=== PATIENT | male | born 1945 | race Caucasian/White ===

== ENCOUNTER 2020-11-22 08:47 | Outpatient (CLI) | payer MEDICARE, SELFPAY ==
--- NOTE | ~2020-11-22 | XR_ITS ---
EXAMINATION: XR hip BI wo pelvis INDICATION: Chronic bilateral hip pain TECHNIQUE: Two views of each hip are obtained. COMPARISON: None available FINDINGS: There is mild osteoarthritis of the hips. Bone alignment is normal. There is no fracture. T he soft tissues are unremarkable. Phleboliths are noted in the pelvis. IMPRESSION: 1. Mild osteoarthritis without acute osseous abnormality. Reviewed, dictated and finalized at location A.
== END 2020-11-22 08:48 | disposition home or self-care (01) ==
LOC: CHSIMG 08:51
PROVIDERS: PCP Internal Medicine; Visit Provider Internal Medicine
DX: M25.552 Pain in left hip (principal); M25.551 Pain in right hip
CPT/HCPCS: 73521

== ENCOUNTER → 2021-01-20 07:13 | Outpatient (CLI) | payer MEDICARE, SELFPAY ==
--- NOTE | ~2021-01-20 | MR_ITS ---
EXAMINATION: MR hip RT wo con DATE: 01/20/2021 08:44 INDICATION: Right hip pain TECHNIQUE: Magnetic resonance imaging (MRI) of the right hip was performed without intravenous contr ast. Sequences included full-field axial PD-weighted FS FSE and T1-weighted FSE, coronal of the pelvi s with PD-weighted FS FSE, small field of view of the right hip with axial PD-weighted FS FSE, sagit stanford PD-weighted FS FSE and coronal PD weighted FS FSE. Additional radial T1-weighted FGR oriented ort hogonal to the acetabular rim were obtained for evaluation of the labrum. COMPARISON: Radiographs dated 11/22/2020 FINDINGS: Bones/labrum/cartilage: Alignment is normal. No fracture, avascular necrosis or pathologic marrow replacing process. Mild lo wer lumbar spondylosis. Mild right hip osteoarthritis with extensive partial thickness cartilage loss resulting in nonuniform joint space narrowing most prominent at the periphery of the joint space. Th ere is a small region of mild subarticular edema along the posterior superior aspect of the right fem oral head. Linear fluid signal labral tear of the anterior to anterosuperior right acetabular labrum with more amorphous degeneration of the posterior superior labrum. Fluid: Symmetric physiologic amount of fluid within both hip joints. 6.2 x 2.4 x 1.8 cm right iliopsoas burs al fluid collection which likely communicates with the hip joint space given the presence of a cluste r of 3 loose osteochondral bodies measuring up to 1.3 x 0.8 cm in the inferior aspect of the bursal f luid collection. Soft tissues: Normal and symmetric muscle bulk and signal in the pelvis and visualized proximal thighs. The iliopso as, gluteal and proximal hamstring tendons are normal. Prostatomegaly. Limited evaluation of visceral organs of the pelvis is otherwise unremarkable. No pathologically enlarged pelvic/inguinal lymphade nopathy. IMPRESSION: 1. Mild right hip osteoarthritis with extensive tear/degeneration of the right acetabular labrum. 2. Moderate amount of fluid and a few loose osteochondral bodies within the right iliopsoas bursa. Reviewed, dictated and finalized at location A. IMPRESSION: 1. Mild right hip osteoarthritis with extensive tear/degeneration of the right acetabular labrum. 2. Moderate amount of fluid and a few loose osteochondral bodies within the rig ht iliopsoas bursa.
== END ==
PROVIDERS: PCP Internal Medicine; Visit Provider Orthopaedic Surgery
DX: M16.11 Unilateral primary osteoarthritis, right hip (principal)
CPT/HCPCS: 73721

== ENCOUNTER 2021-08-17 08:03 | Outpatient (CLI) | payer MEDICARE, SELFPAY ==
--- NOTE | ~2021-08-17 | XR_ITS ---
EXAMINATION: XR sacroiliac jt inj w imag RT DATE: 08/17/2021 09:14 INDICATION: Right hip and back pain. TECHNIQUE: A time-out was performed to verify the patient's name, date of , and procedure to b e performed. The procedure including the risks, benefits, and alternatives was discussed with the pat ient. Risks discussed included bleeding and infection. The patient understood the risks and agreed to proceed. The skin overlying the right sacroiliac joint was prepped and draped in usual sterile fas ion. Anesthetic was administered with 1% lidocaine subcutaneously. A 22 G needle was advanced under fluoroscopic guidance into the joint. Subsequently, injectate consisting of 5 mL 1% lidocaine, 1 mL 40 mg/mL Kenalog, and 1 mL 4 mg/mL dexamethasone was instilled. The needle was removed and the entr y site was cleaned and dressed. There were no immediate complications. Fluoroscopy exposure time was 0.1 minutes. The total number of images was 1. FINDINGS: Real-time fluoroscopy demonstrates the needle in the right sacroiliac joint. Patient's pain prior to procedure:01/30. Patient's pain following the procedure: 07/31. IMPRESSION: 1. Fluoroscopy guided right sacroiliac joint injection of local anesthetic and steroid with decrease in the patient's presenting pain. Reviewed, dictated and finalized at location A.
== END 2021-08-17 08:04 | disposition home or self-care (01) ==
LOC: ANHIMG 08:05
PROVIDERS: PCP Internal Medicine; Visit Provider Internal Medicine
DX: M25.551 Pain in right hip (principal); M54.50 Low back pain, unspecified
CPT/HCPCS: 27096; G0260; J1100; J3301

== ENCOUNTER 2021-11-03 16:47 | Outpatient (CLI) | payer MEDICARE, SELFPAY ==
--- NOTE | ~2021-11-03 | XR_ITS ---
XR lumbar spine 2-3V DATE: 11/03/2021 17:12 INDICATION: Chronic low back pain, bilateral hip pain, worsening on the right TECHNIQUE: AP, lateral, coned lateral lumbosacral views COMPARISON: 06/26/2015 MR lumbar spine 06/21/2015 lumbar spine FINDINGS: Diffuse osteopenia. There is moderate degenerative disc disease and mild spurring throughout the lumbar spine. There is prominent degenerative change at the apophyseal joints at the mid and lower lumbar and lumbo sacral area in particular, with associated minimal grade 1 anterolisthesis at L3-4. Minimal retrolisthesis at L4-5. Included lower thoracic and lumbar pedicles are intact. No fracture or bone destruction is detected. The sacroiliac joints are intact. IMPRESSION: Moderate degenerative disc disease with associated minimal retrolisthesis at L4-5 Degenerative change at the facet joints with associated minimal grade 1 anterolisthesis at L3-4 Osteopenia Reviewed, dictated and finalized at location A. IMPRESSION: Moderate degenerative disc disease with associated minimal retrolis thesis at L4-5 Degenerative change at the facet joints with associated minimal grade 1 anterol isthesis at L3-4 Osteopenia
--- NOTE | ~2021-11-03 | XR_ITS ---
XR hip BI wo pelvis DATE: 11/03/2021 17:12 INDICATION: Bilateral hip pain. Chronic low back pain. TECHNIQUE: AP and lateral views of each hip COMPARISON: 01/20/2021 MRI hip 11/22/2020 bilateral hips FINDINGS: There is osteopenia. Normal alignment at the pubic symphysis and sacroiliac joints. Mild bilateral hip osteoarthritis. No fracture or dislocation, avascular necrosis or bone destruction of either hip is detected. IMPRESSION: Mild bilateral hip osteoarthritis Osteopenia Reviewed, dictated and finalized at location A.
== END 2021-11-03 16:48 | disposition home or self-care (01) ==
LOC: CHSIMG 16:49
PROVIDERS: PCP Internal Medicine; Visit Provider Internal Medicine
DX: M54.50 Low back pain, unspecified (principal); M25.552 Pain in left hip; M25.551 Pain in right hip
CPT/HCPCS: 72100; 73521

== ENCOUNTER 2021-12-19 13:52 | Outpatient (RCR) | payer MEDICARE, SELFPAY ==
--- NOTE | 2021-12-19 17:00 | PTOPEVAL1 ---
Evaluation Information Assessment Status Evaluation Diagnosis low back pain Subjective Information Pt. reports that he has expeineced hip and back pain for many years. He recalls a dislocation of the right hip while in the , which he attributes to his increasing pain. He reports that he received a recent injection in the hip, which has reslolved his hip pain. He reports that he does also suffer from constant low back pain from the middle of the back to the low back. He reports pain is increased with lifting, long periods of standing or when getting out of a seated position. He reports that activity has to be performed more slowly and his helps him with more vigorious activities. He reports that his goal is to decrease his back pain. Reported Pain Level Pain Score 2: Self Report Assessment PT Clinical Summary Pt. is a 76 year old male who enters the clinic with low back pain and right hip pain. He presents with impaired postural awareness, impaired l.e. strength, impaired gait, impaired hip mobility and pain. Continued treatment is indicated in order to improve these areas to allow the pt. to be able to complete all IADL's without complication. Plan of Care Interventions Electrical Stimulation,Gait Training,Hot Pack/Cold Pack,Manual Therapy,Therapeutic Activities, Therapeutic Exercise,Self-Care/Home Management PT Services Indicated Yes Treatment Frequency and 2x/week x 8 visits Duration These treatments will address the objective and functional deficits as defined above. The patient will be advanced safely and appropriately in order for the patient to progress towards his/her prior level of function. Additional exercises will be introduced and as well as a comprehensive home exercise program upon discharge, if needed, ?to ensure carryover of functional gains achieved in the clinic. This treatment plan has been reviewed and agreement upon by the patient.
== END 2021-12-19 15:09 | disposition home or self-care (01) ==
LOC: CHSPT 13:52
PROVIDERS: PCP Internal Medicine; Visit Provider Nurse Practitioner Family
DX: M53.3 Sacrococcygeal disorders, not elsewhere classified (principal); M16.0 Bilateral primary osteoarthritis of hip; M54.16 Radiculopathy, lumbar region
CPT/HCPCS: 97014; 97110; 97161; G0283

== ENCOUNTER → 2022-06-07 06:55 | Outpatient (CLI) | payer MEDICARE, SELFPAY ==
--- NOTE | ~2022-06-07 | MR_ITS ---
EXAMINATION: MR lumbar spine wo con DATE: 06/07/2022 07:28 INDICATION: Lumbar radiculopathy. Low back pain. TECHNIQUE: Magnetic resonance imaging (MRI) of the lumbar spine was performed without intravenous con trast. Sequences included sagittal T2-weighted FSE, sagittal T2-weighted FS FSE, sagittal T1-weighted FSE, and axial T2-weighted FSE. COMPARISON: Lumbar spine MRI 06/26/2015 FINDINGS: Bone alignment is normal. There is mild chronic anterior wedging of T11 and T12 vertebral b odies. There are Schmorl's nodes at multiple levels. There is mildly decreased disc height at L4-L5. The distal spinal cord signal intensity is normal. The conus medullaris is at L1. The following disc levels are specifically discussed: L1-L2: The disc is bulging. There is mild bilateral facet joint osteoarthritis. There is mild left ne ural foraminal stenosis. There is mild central canal stenosis. L2-L3: The disc is bulging. There is moderate right and mild left facet joint osteoarthritis. There i s mild bilateral neural foraminal stenosis. There is no central canal stenosis. L3-L4: The disc is bulging. There is severe bilateral facet joint osteoarthritis. There is mild bilat eral neural foraminal stenosis. There is mild central canal stenosis. L4-L5: The disc is bulging and has an annular fissure. The previously seen left subarticular zone ext rusion has resolved. There is severe bilateral facet joint osteoarthritis. There is mild right and mo derate left neural foraminal stenosis. There is no central canal stenosis. L5-S1: There is a broad-based central protrusion with annular fissure. There is severe bilateral face t joint osteoarthritis. There is mild bilateral neural foraminal stenosis. There is mild central lennie l stenosis. IMPRESSION: 1. Moderate left neural foraminal stenosis at L4-L5. Otherwise mild lumbar spondylosis. Reviewed, dictated and finalized at location A. INE TRY OUT SETTER IMPRESSION: 1. Moderate left neural foraminal stenosis at L4-L5. Otherwise mild lumbar spon dylosis.
== END ==
PROVIDERS: Visit Provider Nurse Practitioner Family
DX: M47.26 Other spondylosis with radiculopathy, lumbar region (principal)
CPT/HCPCS: 72148

== ENCOUNTER 2022-07-12 13:57 | Outpatient (RCR) | payer MEDICARE, SELFPAY ==
--- NOTE | 2022-07-12 13:54 | PTOPEVAL1 ---
Assessment and note entered by Oswald Sanchez Evaluation Information Assessment Status Evaluation Diagnosis low back pain, unsteady gait Onset 06/28/22 Subjective Information Pt. reports that he woke on 06/28/22. He could not move the left arm and leg. He reports that he was referred to [facility] in [place]. He reports that he was in the hospital for 3 days following the stroke. He reports that he was not using a walker and was able to do all IADL's before 06/28/22 . He reports that he is not currently driving. He states that he has been using a walker since the onset due to feeling unsteady. He report that his weakness is in the left arm and left leg. He is right hand dominant. He reports that walking, balance and getting up and down out of a chair are the most difficult things. He reports that he cannot hold a newspaper with the left hand. He reports that his goal is to be able to walk normal . Reported Pain Level Pain Score 6: Self Report Assessment PT Clinical Summary Pt. is a 77 year old male who enters the clinic due to unsteady gait. He presents with impaired gait, functional decline, u.e. and l.e. weakness and impaired balance. Continued skilled PT is indicated in order to improve these areas to assist the pt. in being able to complete all IADL' s with improved safety. Plan of Care Interventions Electrical Stimulation,Gait Training,Hot Pack/Cold Pack,Manual Therapy,Neuro Re-education,Patient/ Caregiver Educati,Therapeutic Activities, Therapeutic Exercise,Self-Care/Home Management PT Services Indicated Yes Treatment Frequency and 2x/week x 12 visits Duration These treatments will address the objective and functional deficits as defined above. The patient will be advanced safely and appropriately in order for the patient to progress towards his/her prior level of function. Additional exercises will be introduced and as well as a comprehensive home exercise program upon discharge, if needed, ?to ensure carryover of functional gains achieved in the clinic. This treatment plan has been reviewed and agreement upon by the patient.
--- NOTE | 2022-08-22 14:09 | PTOPEVAL1 ---
Assessment and note entered by Oswald [facility] Evaluation Information Assessment Status Progress Diagnosis low back pain, unsteady gait Onset 06/28/22 Subjective Information Pt. reports that he is walking better. He states that he is using the cane most of the time. He does walk short distance in his home without an AD . Reported Pain Level Pain Score 0: Self Report Assessment PT Clinical Summary Pt. demonstrates progress in regards to strength and functional mobilty. He has met goals regarding his tinetti score and distance with the 6 minute walk. He still has impaired gait mechanics and requires use of an AD. At this time recommend continued skilled PT for 3 remaining sessions focusing on improving stride length to continue to decrease fall risk. Plan of Care Interventions Gait Training,Neuro Re-education,Patient/Caregiver Educati,Therapeutic Activities,Therapeutic Exercise PT Services Indicated Yes Treatment Frequency and Continue skilled PT for 3 remaining sessions Duration focusing on improving stride length to improve safety with gait. These treatments will address the objective and functional deficits as defined above. The patient will be advanced safely and appropriately in order for the patient to progress towards his/her prior level of function. Additional exercises will be introduced and as well as a comprehensive home exercise program upon discharge, if needed, ?to ensure carryover of functional gains achieved in the clinic. This treatment plan has been reviewed and agreement upon by the patient.
--- NOTE | 2022-09-01 14:33 | PTOPDC ---
Assessment and note entered by JT File, PT Evaluation Information Assessment Status Discharge Diagnosis low back pain, unsteady gait Onset 06/28/22 Subjective Information patient reports he feels great today. he reports he will consider going to fall prevention calss 2x weekly. he reports he has noticed that he is still working on improving his endurance. Reported Pain Level Pain Score 0: Self Report Assessment PT Clinical Summary mr. george presents to skilled PT services for his 12th skilled therapy visit. as of this date, he has made great progress in strength, balance, and ambulation. he has met all goals for skilled PT, excpet for ambulation without an AD. he will DC skilled PT today and continue HEP independent at home, and attend fall prevention class 2x weekly for continued work on endurance and maintaining strength. Plan of Care PT Services Indicated Yes
== END 2022-09-01 16:05 | disposition home or self-care (01) ==
LOC: CHSPT 13:57
PROVIDERS: PCP Internal Medicine; Visit Provider Internal Medicine
DX: M54.50 Low back pain, unspecified (principal); R26.81 Unsteadiness on feet
CPT/HCPCS: 97110; 97112; 97116; 97161; 97530; 97750

== ENCOUNTER 2022-08-02 13:30 | Outpatient (CLI) | payer MEDICARE, SELFPAY ==
--- NOTE | ~2022-08-02 | US_ITS ---
EXAMINATION:US venous doppler LE LT INDICATION:Left leg edema TECHNIQUE: Multiple grayscale, color flow and Doppler images of the left lower extremity deep venous systems were obtained and reviewed. COMPARISON:No prior studies for comparison. FINDINGS: The common femoral, superficial femoral and popliteal veins demonstrate normal respiratory variation, augmentation and compressibility. Color flow is also seen within the posterior tibial, pe roneal, greater saphenous and profunda veins. IMPRESSION: 1: No lower extremity deep venous thrombosis. Reviewed, dictated and finalized at location B.
[2022-08-02 13:55] LABS: Basophils Absolute Auto 0.03 K/mm3 (0.00-0.10); Basophils Percent Auto 0.2 % (0.0-1.0); Hematocrit 43.2 % (37.0-46.0); Hemoglobin 14.7 g/dL (12.4-15.3); Immature Granulocyte Absolute 0.06 K/mm3 (0.00-0.00); Immature Granulocyte Percent A 0.4 % (0.0-0.0); Lymphocytes Absolute Auto 0.63 K/mm3 (1.10-4.50); Lymphocytes Percent Auto 4.5 % (18.0-42.0); Mean Corpuscular Hemoglobin 32.7 pg (27.0-31.0); Mean Platelet Volume 9.6 fl (8.7-11.0); Monocytes Absolute Auto 1.46 K/mm3 (0.10-0.90); Monocytes Percent Auto 10.4 % (2.0-11.0); Neutrophils Absolute Auto 11.9 K/mm3 (1.7-7.2); Neutrophils Percent Auto 84.5 % (50.0-70.0); Platelet Count Result 198 K/mm3 (150-420); Red Cell Distribution Width 12.3 % (11.6-14.4); White Blood Count 14.1 K/mm3 (4.8-10.8)
[2022-08-02 14:25] LABS: Alanine Aminotransferase 94 U/L (16-63); Albumin Level 3.3 g/dL (3.4-5.0); Alkaline Phosphatase 115 U/L (46-116); Anion Gap 9 mmol/L (8-16); Aspartate Amino Transferase 73 U/L (15-37); Bilirubin,Total 1.1 mg/dL (0.00-1.00); Blood Urea Nitrogen 15 mg/dL (7-18); Calcium 9.2 mg/dL (8.5-10.1); Carbon Dioxide 28 mmol/L (21-32); Chloride 97 mmol/L (98-108); Estimated Glomerular Filt Rate 58; Free T3 1.99 pg/mL (2.18-3.98); Glucose 121 mg/dL (70-99); NT Pro B Type Natriuretic Pept 391 pg/mL (0-450); Osmolality Calculated 279 mOsm/kg (285-295); Potassium 4.4 mmol/L (3.5-5.1); Prostate Specific Antigen 54.1 ng/mL (< OR = 4.0); Sodium 134 mmol/L (136-145); Thyroid Stimulating Hormone 1.08 uIU/mL (0.36-3.74); Total Protein 8.2 g/dL (6.4-8.2)
[2022-08-02 14:35] LABS: CRP 19.5 mg/dL (0.0-0.9)
[2022-08-02 14:58] LABS: Erythrocyte Sedimentation Rate 34 mm/hr (0-20)
[2022-08-02 16:07] LABS: Appearance Urine Clear (Clear); Bilirubin Urine Negative (Negative); Blood Urine Negative (Negative); Color Urine Yellow (Yellow); Glucose Urine UA Negative (Negative); Ketones Urine Trace (Negative); Leukocyte Esterase Ur Trace (Negative); Nitrate Urine Negative (Negative); Protein Urine Negative (Negative); Specific Grav Ur 1.015 (1.010-1.020); pH Urine 6.5 (5.0-8.0)
[2022-08-02 16:11] LABS: Add Urine Microscopic? YES; RBC Urine None seen /hpf (0-2)
[2022-08-02 16:12] LABS: Bacteria Urine 1+ /hpf
== END 2022-08-02 13:31 | disposition home or self-care (01) ==
LOC: CHSLAB 13:34
PROVIDERS: PCP Internal Medicine; Visit Provider Internal Medicine
DX: R50.9 Fever, unspecified (principal); R30.0 Dysuria; I49.9 Cardiac arrhythmia, unspecified; M79.89 Other specified soft tissue disorders; R06.00 Dyspnea, unspecified; N41.9 Inflammatory disease of prostate, unspecified
CPT/HCPCS: 36415; 80053; 81001; 83880; 84153; 84439; 84443; 84481; 85025; 85652; 86140; 87040; 87077; 87086; 87088; 87186; 93971

== ENCOUNTER 2022-08-05 14:47 | Outpatient (CLI) | payer MEDICARE, SELFPAY | END 2022-08-05 14:48 | disposition home or self-care (01) | LOC: CHSLAB 14:52 → CHSTREATRM 14:54 | PROVIDERS: PCP Internal Medicine; Visit Provider Internal Medicine | DX: N41.0 Acute prostatitis (principal) | CPT/HCPCS: 96372; J0696 ==

== ENCOUNTER 2022-08-06 14:42 | Outpatient (CLI) | payer MEDICARE, SELFPAY ==
[2022-08-06] MEDS: cefTRIAXone 1 GM VIAL 2 GM IM (15:06)
== END 2022-08-06 14:43 | disposition home or self-care (01) ==
LOC: CHSTREATRM 14:43
PROVIDERS: PCP Internal Medicine; Visit Provider Internal Medicine
DX: N41.0 Acute prostatitis (principal)
CPT/HCPCS: 96372; J0696

== ENCOUNTER → 2022-08-07 12:21 | Outpatient (CLI) | payer MEDICARE, SELFPAY ==
--- NOTE | ~2022-08-07 | MR_ITS ---
MRI of the brain Clinical History: Cerebral infarction Technique: Axial and sagittal T1-weighted images were acquired. These were followed by axial T2-weigh misael, diffusion weighted, gradient, and FLAIR images. COMPARISON: 01/01/2017 Findings: There is no acute infarct, intracranial hemorrhage, or mass lesion. There are chronic lacun ar infarcts in the right side of the lloyd and in the right basal ganglia. There are moderate chronic white matter changes in the periventricular white matter bilaterally. Ventricles and subarachnoid spaces are unremarkable. Orbits are unremarkable. Paranasal sinuses and m astoid air cells are clear. Major intracranial flow voids appear intact. Sagittal midline structures are intact. IMPRESSION: No acute abnormality seen. Probable chronic lacunar infarcts in the right lloyd, new since prior exam. Moderate chronic microvascular ischemic change. Reviewed, dictated and finalized at location .
== END ==
PROVIDERS: PCP Internal Medicine; Visit Provider Internal Medicine
DX: I63.9 Cerebral infarction, unspecified (principal)
CPT/HCPCS: 70551

== ENCOUNTER 2022-10-23 15:03 | Outpatient (CLI) | payer MEDICARE, SELFPAY ==
--- NOTE | ~2022-10-23 | XR_ITS ---
XR shoulder RT min 2V DATE: 10/23/2022 15:29 INDICATION: Right shoulder pain for 20 years from old injury TECHNIQUE: 4 views COMPARISON: None FINDINGS: There is diffuse osteopenia. No fracture, dislocation, periosteal reaction or bone destruction. There is joint space narrowing and mild spurring at the acromioclavicular joint glenohumeral joint sp miguelina appears relatively well preserved. No abnormal right shoulder calcification is noted. Degenerative changes of the cervical and thoracic spine. Incidental finding of azygos lobe. IMPRESSION: Degenerative change at right acromioclavicular joint Osteopenia No fracture or dislocation Reviewed, dictated and finalized at location A.
== END 2022-10-23 15:04 | disposition home or self-care (01) ==
PROVIDERS: PCP Internal Medicine; Visit Provider Internal Medicine
DX: M25.511 Pain in right shoulder (principal); M85.811 Other specified disorders of bone density and structure, right shoulder
CPT/HCPCS: 73030

== ENCOUNTER 2023-04-17 09:59 | Emergency (ER) | payer MEDICARE, SELFPAY ==
[2023-04-17 10:01] VITALS: BP 147/62; PULSE 92; RESP 18; TEMP 37; O2SAT 97
--- NOTE | 2023-04-17 10:03 | ED.MALEGU ---
HPI - Male Genitourinary General Chief complaint: Urogenital-Male Stated complaint: urinary issue Time Seen by Provider: 04/17/23 10:03 Source: patient Mode of arrival: ambulatory Limitations: no limitations History of Present Illness HPI Narrative: patient is a 77-year-old male with dysuria. He presented to another hospital and got Keflex. He took 1 dose of Keflex and I gave him abdominal discomforts. He is allergic to penicillin. No true allergic reaction. He would like another antibiotic at this time. MD Complaint: dysuria Onset (ago): day(s) Duration: constant Location: penis Radiation: penis Severity: mild Severity scale (1-10): 2 Quality: burning Relieving factors: none Exacerbating factors: none Context: new medication Associated symptoms: Reports denies other symptoms Related Data Home Medications Medication Instructions Recorded Confirmed amiloride 5 mg tablet 5 mg PO DAILY 08/06/22 04/17/23 aspirin 81 mg chewable tablet 81 mg PO DAILY 04/17/23 04/17/23 clonidine HCl 0.1 mg tablet 0.1 mg PO BID 04/17/23 04/17/23 docusate sodium 100 mg tablet 100 mg PO DAILY 04/17/23 04/17/23 duloxetine 20 mg capsule,delayed 20 mg PO QHS 04/17/23 04/17/23 release losartan 100 1 tablet PO DAILY 04/17/23 04/17/23 mg-hydrochlorothiazide 12.5 mg tablet mycophenolate mofetil 250 mg 1,000 mg PO BID 04/17/23 04/17/23 capsule pyridostigmine bromide 60 mg tablet 120 mg PO TID 04/17/23 04/17/23 zolpidem 10 mg tablet 10 mg PO QHS 04/17/23 04/17/23 Allergies Allergy/AdvReac Type Severity Reaction Status Date / Time Penicillins Allergy Unknown Hives Verified 04/17/23 10:06 Review of Systems Review of Systems: All systems reviewed & are unremarkable except as noted in HPI and below Constitutional: Constitutional: Reports no additional constitutional complaints Eyes: Eyes: Reports no additional eye complaints ENT: Reports system reviewed and no additional complaints, except as documented Cardiovascular: Cardiovascular: Reports no additional cardiovascular complaints Respiratory: Respiratory: Reports no additional respiratory complaints Gastrointestinal: Gastrointestinal: Reports no additional gastrointestinal complaints Genitourinary: Genitourinary: Reports no additional male genitourinary complaints Musculoskeletal: Musculoskeletal: Reports no additional musculoskeletal complaints Integumentary/Breasts: Skin/Breast: Reports system reviewed and no additional complaints, except as docu Neurologic: Reports system reviewed and no additional complaints, except as documented Psychiatric: Psychiatric: Reports no additional psychiatric complaints Endocrine: Endocrine: Reports no additional endocrine complaints Hematologic/Lymphatic: Hematologic/Lymphatic: Reports no additional hematologic/lymphatic complaints Allergic/Immunologic: Allergic/Immunologic: Reports no additional allergic/immunologic complaints Exam Const: General: healthy appearing Nutritional Appearance: well nourished Limitations: no limitations HENMT: Head: normal to inspection Ears: TM's normal bilaterally Face/Nose/Sinus: Normal external nose present Eyes: Conjunctivae: conjunctivae normal Pupils: Equal, round and reactive pupils present EOM: EOMs intact bilaterally Neck: Neck: normal visual inspection Chest: Chest palpation & inspection: normal inspection of the chest Resp: Effort & Inspection: normal respiratory effort and not labored Auscultation: clear to auscultation bilaterally and no crackles Cardio: Rate: regular rate Rhythm: regular rhythm Heart sounds: no murmurs GI: Inspection: non-distended GI Palp: Yes Soft to palpation, No Tenderness to palpation present (GI), No Guarding due to palpation present (GI) and No Rigid due to palpation Auscultation: normal bowel sounds : General: No bladder normal to palpation and Yes Bladder palpation abnormal tender Back/Spine/Pelvis: Back: no CVA tenderness Skin: General s
--- NOTE | 2023-04-21 13:09 | PC.NURSE ---
urine culture noted. pt given bactim ds. no changes needed per dr pierre.
--- NOTE | 2023-04-21 13:17 | PC.NURSE ---
spoke with pt per dr pierre request, pt feeling 100% better. no changes with medications given
== END 2023-04-17 10:44 | disposition home or self-care (01) ==
LOC: CHSED 10:42
PROVIDERS: Emergency Provider Emergency Medicine; PCP Internal Medicine
DX: N30.00 Acute cystitis without hematuria (principal); Z79.899 Other long term (current) drug therapy; Z79.82 Long term (current) use of aspirin
CPT/HCPCS: 87077; 87086; 87088; 87186; 99283

== ENCOUNTER 2023-04-19 13:35 | Outpatient (CLI) | payer MEDICARE, SELFPAY ==
--- NOTE | ~2023-04-19 | CT_ITS ---
EXAMINATION: CT abdomen pelvis wo con DATE: 04/19/2023 14:13 INDICATION: Painful hematuria. History of stones. TECHNIQUE: Computed tomography (CT) of the abdomen and pelvis was performed without intravenous contr ast. The dose-length product was 435.16 mGy-cm. Automated exposure control and iterative reconstructi on technique were employed. COMPARISON: CT dated 07/24/2017 FINDINGS: Lung bases are unremarkable. Heart size normal. Small pericardial effusion. No significant pleural effusion. There is atherosclerosis. The liver, spleen, pancreas, adrenal glands and kidneys a re unremarkable. There is diffuse bladder wall thickening with surrounding inflammation, consistent w ith cystitis. Enlarged prostate gland. Nonobstructive bowel gas pattern. Small fat-containing umbilic al hernia. Small fat-containing right inguinal hernia. Mild lower thoracic and lumbar spondylosis. The liver, spleen, pancreas, adrenal glands are unremarkable. IMPRESSION: 1. Thickened bladder wall with surrounding inflammation, consistent with cystitis. Reviewed, dictated and finalized at location L. ICAL LAB SCIENTIST IMPRESSION: 1. Thickened bladder wall with surrounding inflammation, consistent with cystit is.
[2023-04-19 13:51] LABS: Hematocrit 41.9 % (37.0-46.0); Hemoglobin 14.2 g/dL (12.4-15.3); Mean Corpuscular HGB Conc 33.9 g/dL (32.0-36.0); Mean Corpuscular Hemoglobin 32.1 pg (27.0-31.0); Mean Corpuscular Volume 94.6 fL (78.0-102.0); Mean Platelet Volume 9.5 fl (8.7-11.0); Platelet Count Result 207 K/mm3 (150-420); Red Blood Count 4.43 M/mm3 (4.70-6.10); Red Cell Distribution Width 12.3 % (11.6-14.4); White Blood Count 5.3 K/mm3 (4.8-10.8)
[2023-04-19 14:00] LABS: Band Neutrophils Percent 1 % (0-6); Lymphocytes Absolute Manual 0.63 K/mm3 (1.1-4.5); Lymphocytes Percent Manual 12 % (18-44); Monocytes Absolute Manual 0.79 K/mm3 (0.1-0.90); Monocytes Percent Manual 15 % (3-9); Neutrophils Absolute Manual 3.86 K/mm3 (1.3-6.7); Neutrophils Percent Manual 72 % (46-73); Total Cells Counted 100
[2023-04-19 14:01] LABS: Platelet Estimate Adequate (Adequate)
[2023-04-19 14:06] LABS: Alanine Aminotransferase 73 U/L (16-63); Albumin Level 2.9 g/dL (3.4-5.0); Alkaline Phosphatase 95 U/L (46-116); Anion Gap 4 mmol/L (8-16); Aspartate Amino Transferase 45 U/L (15-37); Bilirubin,Total 0.3 mg/dL (0.00-1.00); Blood Urea Nitrogen 14 mg/dL (7-18); Carbon Dioxide 31 mmol/L (21-32); Chloride 95 mmol/L (98-108); Estimated Glomerular Filt Rate 57; Glucose 126 mg/dL (70-99); Osmolality Calculated 272 mOsm/kg (285-295); Potassium 4.2 mmol/L (3.5-5.1); Sodium 130 mmol/L (136-145); Total Protein 6.7 g/dL (6.4-8.2)
== END 2023-04-19 13:36 | disposition home or self-care (01) ==
PROVIDERS: PCP Internal Medicine; Visit Provider Internal Medicine
DX: R30.9 Painful micturition, unspecified (principal); R93.41 Abnormal radiologic findings on diagnostic imaging of renal pelvis, ureter, or bladder
CPT/HCPCS: 36415; 74176; 80053; 85025

== ENCOUNTER 2024-07-28 10:00 | Outpatient (RCR) | payer MEDICARE, SELFPAY ==
--- NOTE | 2024-05-01 12:09 | WPDSLSEVAL ---
[facility] HPI HPI Referral Source self/PCP Visit Attended By patient, family member and staff History Obtained From patient, family member and other ( chart) Chief Complaint I can not function History of Present Illness this is a 78-year-old white male with a long history of depression anxiety, previously admitted here on 05/23/2018, reports an increase in depressive and anxiety symptoms since December when his son, who had drug and alcohol issues, unexpectedly. Patient says that his son's marriage was a significant stressor for the son, and he from a meth overdose, apparently accidentally. Patient is consumed with grief over the fact that he feels that he did not impress upon his son sufficiently that relationship was toxic. he reports depressed and anxious mood, loss of interest in activities, low energy, feelings of guilt / worthlessness, difficulty concentrating, restlessness, irritability, dias insomnia. Patient has had trouble with sleep for years and although he is on Ambien 10 mg q.h.s. this is no longer helping. His doctor gave him low-dose Xanax and Cymbalta, but the Cymbalta caused GI side effects and the low dose of Xanax was ineffective. He was on Remeron in the past, which helped him sleep, but even at a 3.75 mg dose he was excessively sedated. He is unsure as to what other antidepressants he has been on. HPI: Quality & Associated Signs and Symptoms hopelessness/helpless, anxiety/panic attacks, low motivation, overwhelmed, worthlessness, low energy, loss of appetite and irritability Evaluation of Sleep difficulty falling asleep, frequent awakening and early awakening Past History Psychosocial Hx: Mother and biological father while patient was young. Says he never knew his father, but was very close to stepfather. Had good childhood, good relationships with half and stepsiblings. Graduated high school, also graduated with a BS and Education at [employer]. Also went to [employer]. was in [employer] in [place] late 60/early 70s, honorable discharge, saw very little combat. 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 Substance Use Hx: Used to smoke but quit 40 years ago. Very rare use of alcohol. Denies use of marijuana or illicit drugs. Past Medical Hx: Hypertension, myasthenia gravis, dyslipidemia, cerebral infarction x2, diverticulosis, chronic fatigue, chronic pain, BPH, osteoarthritis Past Surgical Hx: appendectomy Past Psych Hx: as per HPI. Was also on Rozerem at 1 time which apparently caused suicidal thoughts. 1 son had a history of drug and alcohol abuse, apparently biological father had similar issues. Review of Systems Review of Systems Constitutional Reports fatigue and generalized weakness Eyes Reports WNL ENT Reports WNL Respiratory Reports WNL Cardiovascular Reports other ( Hypertension) Gastrointestinal Reports other ( hiatal hernia, diverticulosis) Musculoskeletal Reports abnormal gait, Reports assistive device, Reports diminished strength, Reports muscle stiffness and Reports other ( osteoarthritis, chronic pain) Neurologic Reports other ( CVA x2, myasthenia gravis) Skin Reports WNL ADL's Reports WNL and Reports independent Exam Physical Exam Review of Lab Studies n/a Significant Lab Findings n/a Hygiene good General Behavior/Attitude Toward Examiner pleasant and cooperative Pain Yes Pain Location generalized Pain Characteristics chronic and aching Psychiatric Exam Level of Consciousness alert Orientation person, place, time and situation Speech normal rate/tone/volume/prosody and coherent Language able to comprehend questions Mood depressed, anxious Affect full range, appropriate and congruent Thought Processes/Form logical, linear and goal directed Thought Content depressive and anxiety symptoms Delusions none Homicidal/Assaultive Ideation none Suicidal Ideation none Hallucinations none Attention/Concentration focused Attention/Concentration Testing Methods observation/interview Short Term Memory Impairment none STM Testing Methods clinical interview (assessment/observation) Shelter Memory Impairment none LTM Testing Methods recall of biographical information Intellectual Functioning roughly average Intellectual Functioning Assessed By current events Insight fair Insight Assessed By ability to recognize & acknowledge mental illness, ability to understand the implications of mental illness, understanding of treatment options and ability to comply with treatment Judgement fair Judgement Assessed By exploring recent decision-making MMSE slums 29, GDS 27, ZUNG 45/56 Patient Assets patient is willing to accept treatment, able to perform ADLs Patient Liabilities chronic pain, mobility issues, recent of son Assessment and Plan Assessment and Plan Diagnosis 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 Supportive/ cognitive therapy. Patient is very focused on sleep, therefore will start trazodone 50-100 mg q.h.s. p.r.n.. Discontinue Cymbalta and Xanax, I will see him next week and we will talk about other antidepressant treatment at that point. Admission Overview Reason for Admission to Intensive Outpatient Program Impaired mood, depression, mood swings, patient would decompensate at a lower level of care, patient failed to benefit from lower level of care, not at baseline level of functioning, expectation of improvement w/continued treatment at this level of care and high risk for relapse Treatment To Be Provided medication management and group/individual/rec therapy Coordination of Care Education Provided diagnosis, psychoeducation and phychopharmacological education Coordination of Care Family Involvement yes Initial Discharge Disposition/Level of alf and PCP Medical Necessity GENERAL CRITERIA Pt demonstrates a willingness to participate in program at this level., There is a clear and reasonable expectation that pt will benefit and Pt has a current DSM Diagnosis that is appropriate for admission INCLUSION CRITERIA Pts symptoms are severe enough that: Current level of OP treatment is not effectively reducing symptoms. Level of Functioning Severe Impairment in Multiple Areas of Daily Life Psychiatric Symptoms Moderate to Severe Risk and Dangerousness Mild Instability Commitment to Treatment and Program Limited Ability to Form a Long-Term Contract Social Support Able to Form and Maintain Relationships Outside of Treatment Certification Statement Certification Statement I believe this patient requires the services of the Intensive Outpatient Program and that there is reasonable expectation that the patient will make timely and significant practical improvement in the presenting acute symptoms as a result of this Intensive Outpatient Program. I do not believe this patient will benefit from a lesser level of care or could be adequately and appropriately treated in a less restrictive environment. My decision is based on the preceding clinical information. Initial Treatment Plan - IOP Initial Treatment Plan Date Identified 05/01/24 Objective The patient will attend all behavioral health and medical appointments as scheduled within the first two weeks of admission to the program. Target Date 05/15/24 Plan of Intervention/Modality Medication management and supportive/ cognitive therapy Certification Statement I certify that this patient requires outpatient services, and services will be furnished under the supervision and care of a physician, and under an individual, written plan of treatment.
--- NOTE | 2024-05-01 15:21 | PC.NURSE ---
Called [facility] in [place] and spoke to Marie to order the patient's Trazodone 50mg 1-2 tabs every evening X 30 days.
[2024-05-06 10:23] VITALS: BP 123/73; PULSE 80; RESP 20; TEMP 36.9; O2SAT 99
--- NOTE | 2024-05-07 10:12 | PC.NURSE ---
No nursing group due to the patient leaving early.
[2024-05-07 13:22] VITALS: BP 114/69; PULSE 80; RESP 20; TEMP 37; O2SAT 98
--- NOTE | 2024-05-08 12:04 | P.PN_ITS ---
Progress HPI Progress HPI Visit Attended By patient and staff History Obtained From patient Chief Complaint one-week follow-up from admission HPI patient is being seen for depression and anxiety. At our 1st visit we started trazodone as insomnia was his major complaint, which he has experienced for years, with the only thing working being Ambien CR 12.5 mg q.h.s., as other medications either have not worked or caused side effects,but we are trying to find an alternative medication for sleep. start him on a small dose of trazodone on admission but after taking it for 190 it to stop it as he had a severe reaction to it. He reports that he did not sleep, could not go to the bathroom, and had body aches. Fortunately these have subsided since he stopped the medication. We talked about other medications such as Seroquel, Elavil, etc.. He is not sure what he has or has not been on and so he is going to talk to Dr. Nagy and see if he can find out about past medications. He says that he actu ally has felt better than he has in a long time by just coming to the group. He is coming twice a week. Remeron was too sedating even at a very small dose. patient reports that he has had trouble with sleep ever since started medication for myasthenia gravis years ago. he is still quite consumed with guilt over his son's , feeling that he could have done more to help him. Average Number of Hours of Sleep 5 Sleep Quality difficulty falling asleep, frequent awakening, early awakening and restlessness Change in PMFSH Releveant to Presenting Illness Yes Describe Changes in PMFSH Side effects to trazodone Review of Systems Review of Systems Constitutional Reports fatigue, generalized weakness and other ( Side effects to trazodone, including body aches and urinary retention) Eyes Reports WNL ENT Reports WNL Respiratory Reports WNL Cardiovascular Reports other ( hypertension) Gastrointestinal Reports other ( hiatal hernia, diverticulosis) Musculoskeletal Reports abnormal gait, Reports assistive device, Reports diminished strength, Reports muscle stiffness and Reports other ( osteoarthritis, chronic pain) Neurologic Reports other ( myasthenia gravis, CVA x2) Skin Reports WNL ADL's Reports WNL and Reports independent Exam Physical Exam Review of Lab Studies n/a Hygiene good General Behavior/Attitude Toward Examiner pleasant and cooperative Pain Yes Pain Location generalized Pain Characteristics chronic and aching Psychiatric Exam Level of Consciousness alert Orientation person, place, time and situation Speech normal rate/tone/volume/prosody and coherent Language able to follow instructions or commands Mood anxious, depressed Affect constricted, full range, appropriate and congruent Thought Processes/Form logical, linear and goal directed Thought Content depressive and anxiety symptoms Delusions none Homicidal/Assaultive Ideation none Suicidal Ideation none Hallucinations none Attention/Concentration focused Attention/Concentration Testing Methods observation/interview Short Term Memory Impairment none STM Testing Methods clinical interview (assessment/observation) [employer]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 Memory Impairment none and unable to assess LTM Testing Methods recall of biographical information Intellectual Functioning roughly average Intellectual Functioning Assessed By fund of knowledge and current events Insight fair and improving Insight Assessed By ability to recognize & acknowledge mental illness, ability to understand the implications of mental illness, understanding of treatment options and ability to comply with treatment Judgement fair and improving Judgement Assessed By exploring recent decision-making MMSE n/a Patient Assets willing to accept treatment, able to perform ADLs Patient Liabilities chronic pain, mobility issues, recent of son Assessment and Plan Clinical Impression/Diag Clinical Impression/Diagnosis F 33.1, side effects to medication. Continue IOP, discontinue trazodone tone, patient will try to find out about other medications he may been on in the past. Progress Overview Reason for Continued Services in an Intensive Outpatient Program continued impaired mood and.or depression, patient would decompenste at a lower level of care, not at baseline level of functioning and high risk for relapse Treatment To Be Provided medication management and group/individual/rec therapy Discharge Disposition/Level of Care PCP Anticipated Discharge 8-12 weeks Certification Statement Certification Statement I believe this patient requires the services of the Intensive Outpatient Program and that there is reasonable expectation that the patient will make timely and significant practical improvement in the presenting acute symptoms as a result of this Intensive Outpatient Program. I do not believe this patient will benefit from a lesser level of care or could be adequately and appropriately treated in a less restrictive environment. My decision is based on the preceding clinical information.
--- NOTE | 2024-05-12 10:31 | PC.NURSE ---
No nursing group due to nurse meeting.
[2024-05-12 10:33] VITALS: BP 123/60; PULSE 60; RESP 20; TEMP 36.9; O2SAT 97
[2024-05-14 10:08] VITALS: BP 114/74; PULSE 56; RESP 20; TEMP 36.7; O2SAT 99
--- NOTE | 2024-05-15 12:22 | P.PN_ITS ---
Progress HPI Progress HPI Visit Attended By patient, family member and staff History Obtained From patient and family member Chief Complaint one-week medication follow-up HPI this is a follow-up from last week. At that time we discontinued his trazodone as this caused a very unpleasant reaction. he is suffering no lingering affects from this but is still not sleeping. He says a good friend of his, who is a doctor of pharmacy and has myasthenia gravis told him that hydroxyzine would be a good medication to try for sleep. I told patient I did not see a problem with this, that it is not addictive, has a mild anti anxiety and sedative affect. He also remains on Ambien CR 12.5 mg q.h.s.. Average Number of Hours of Sleep 4 Sleep Quality difficulty falling asleep, frequent awakening, early awakening and restlessness Change in PMFSH Releveant to Presenting Illness No Review of Systems Review of Systems Constitutional Reports fatigue and generalized weakness Eyes Reports WNL ENT Reports WNL Respiratory Reports WNL Cardiovascular Reports other ( Hypertension) Gastrointestinal Reports other ( hiatal hernia, diverticulosis) Musculoskeletal Reports abnormal gait, Reports diminished strength, Reports muscle stiffness and Reports other ( osteoarthritis, chronic pain) Neurologic Reports other ( myasthenia gravis, CVA x2) Skin Reports WNL ADL's Reports independent Exam Physical Exam Review of Lab Studies n/a Hygiene good General Behavior/Attitude Toward Examiner pleasant and cooperative Pain Yes Pain Location generalized Pain Characteristics chronic and aching Psychiatric Exam Level of Consciousness alert Orientation person, place, time and situation Speech normal rate/tone/volume/prosody and coherent Language able to follow instructions or commands Mood anxious, depressed Affect full range, appropriate and congruent Thought Processes/Form logical, linear and goal directed Thought Content depressive and anxiety symptoms Delusions none Homicidal/Assaultive Ideation none Suicidal Ideation none Hallucinations none Attention/Concentration focused Attention/Concentration Testing Methods observation/interview Short Term Memory Impairment none STM Testing Methods clinical interview (assessment/observation) Flexible Babysitter Memory Impairment none LTM Testing Methods recall of biographical information Intellectual Functioning roughly average Intellectual Functioning Assessed By fund of knowledge Insight fair Insight Assessed By ability to recognize & acknowledge mental illness, ability to understand the implications of mental illness, understanding of treatment options and ability to comply with treatment Judgement fair Judgement Assessed By exploring recent decision-making MMSE n/a Patient Assets able to perform ADLs, marital support, willing to accept treatment Patient Liabilities chronic pain, mobility issues, recent of son Assessment and Plan Clinical Impression/Diag Clinical Impression/Diagnosis F 33.1. Will start low-dose hydroxyzine at 10 mg q.h.s. p.r.n. for sleep. Side effects, risks, benefits explained to patient who understands and agrees to plan. Progress Overview Reason for Continued Services in an Intensive Outpatient Program continued impaired mood and.or depression, patient would decompenste at a lower level of care, not at baseline level of functioning and high risk for relapse Treatment To Be Provided medication management and group/individual/rec therapy Discharge Disposition/Level of Care PCP Anticipated Discharge 8-12 weeks Certification Statement Certification Statement I believe this patient requires the services of the Intensive Outpatient Program and that there is reasonable expectation that the patient will make timely and significant practical improvement in the presenting acute symptoms as a result of this Intensive Outpatient Program. I do not believe this patient will benefit from a lesser level of care or could be adequately and appropriately treated in a less restrictive environment. My decision is based on the preceding clinical information.
[2024-05-19 10:47] VITALS: BP 138/72; PULSE 65; RESP 18; TEMP 36.8; O2SAT 100
[2024-05-21 10:10] VITALS: BP 145/77; PULSE 80; RESP 20; TEMP 36.4; O2SAT 99
--- NOTE | 2024-05-21 10:25 | PC.NURSE ---
No nursing group due to nurse meeting.
[2024-05-26 10:15] VITALS: BP 129/82; PULSE 82; RESP 20; TEMP 36.4; O2SAT 98
[2024-05-28 10:16] VITALS: BP 140/84; PULSE 82; RESP 20; TEMP 36.8; O2SAT 100
--- NOTE | 2024-06-02 09:14 | SLSTHERAPY ---
Phone call received from Piyush canceling 06/02/2024 group due to flu; Piyush is scheduled to return to group 06/05/2024.
--- NOTE | 2024-06-05 08:51 | SLSTHERAPY ---
Phone call received from Piyush canceling 06/05/2024 group attendance due to illness; Piyush is scheduled to return to group 06/09/2022.
--- NOTE | 2024-06-09 09:53 | PC.NURSE ---
No nursing group due to nurse meeting.
[2024-06-09 10:13] VITALS: BP 146/79; PULSE 90; RESP 20; TEMP 36.5; O2SAT 100
[2024-06-11 11:16] VITALS: BP 137/50; PULSE 78; RESP 20; TEMP 36.7; O2SAT 98
--- NOTE | 2024-06-12 12:34 | P.PN_ITS ---
Progress HPI Progress HPI Visit Attended By patient, family member and staff History Obtained From patient, family member and other Chief Complaint Four-week follow-up for depression and anxiety HPI this is a 4 week follow-up for depression anxiety. Patient and his both had the flu recently and were not able to make his last appointment. Since our last visit we started him on hydroxyzine 10 mg 1-2 mg q.h.s. p.r.n. insomnia. He takes 1 tablet when he goes to bed, and then another tablet a bit later. When he combines this with the Ambien CR 12.5 mg q.h.s., he says he actually sleeps 5-6 hours. He also asks if he should still be taking Cymbalta, then he says he had been taking it even after we stopped it on admission, but he is not entirely sure except that he is fairly certain that he has been back on it for about month or so. He is apparently on 20 mg q.day. In addition, he is on Xanax 0.25 mg p.r.n. anxiety, which he says he does not always take, and I told him to minimize this, especially not to take it at nighttime when he takes all his other medicine. He still feels anxious and depressed, and feels that grief is driving all of this. He is scheduled for therapy 2 times week. Average Number of Hours of Sleep 6 Sleep Quality difficulty falling asleep and frequent awakening Change in PMFSH Releveant to Presenting Illness Yes Describe Changes in PMFSH some improvement in sleep as above Review of Systems Review of Systems Constitutional Reports fatigue and generalized weakness Eyes Reports WNL ENT Reports WNL Respiratory Reports WNL Cardiovascular Reports other ( hypertension) Gastrointestinal Reports other ( hiatal hernia, diverticulosis) Musculoskeletal Reports abnormal gait, Reports assistive device, Reports diminished strength, Reports muscle stiffness and Reports other ( osteoarthritis, chronic pain) Neurologic Reports other ( myasthenia gravis, CVA x2) Skin Reports WNL ADL's Reports WNL Exam Physical Exam Review of Lab Studies n/a Hygiene good General Behavior/Attitude Toward Examiner pleasant and cooperative Pain Yes Pain Location generalized Pain Characteristics chronic and aching Psychiatric Exam Level of Consciousness alert Orientation person, place, time and situation Speech normal rate/tone/volume/prosody and coherent Language able to follow instructions or commands Mood anxious, depressed Affect restricted Thought Processes/Form logical, linear and goal directed Thought Content depressive and anxiety symptoms Delusions none Homicidal/Assaultive Ideation none Suicidal Ideation none Hallucinations none Attention/Concentration focused Attention/Concentration Testing Methods observation/interview Short Term Memory Impairment none STM Testing Methods clinical interview (assessment/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) 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 Memory Impairment none LTM Testing Methods recall of biographical information Intellectual Functioning roughly average Intellectual Functioning Assessed By current events Insight fair Insight Assessed By ability to recognize & acknowledge mental illness, ability to understand the implications of mental illness, understanding of treatment options and ability to comply with treatment Judgement fair Judgement Assessed By exploring recent decision-making MMSE n/a Patient Assets willing to accept treatment, able to perform ADLs Patient Liabilities chronic pain, mobility issues, recent of son Assessment and Plan Clinical Impression/Diag Clinical Impression/Diagnosis F 33.1, some improvement sleep. Increase Cymbalta to 40 mg q.a.m., RTC in 2 weeks Progress Overview Reason for Continued Services in an Intensive Outpatient Program continued impaired mood and.or depression, patient would decompenste at a lower level of care, not at baseline level of functioning and high risk for relapse Treatment To Be Provided medication management, group/individual/rec therapy and family session as indicated Discharge Disposition/Level of Care PCP Anticipated Discharge 8-12 weeks Certification Statement Certification Statement I believe this patient requires the services of the Intensive Outpatient Program and that there is reasonable expectation that the patient will make timely and significant practical improvement in the presenting acute symptoms as a result of this Intensive Outpatient Program. I do not believe this patient will benefit from a lesser level of care or could be adequately and appropriately treated in a less restrictive environment. My decision is based on the preceding clinical information.
[2024-06-16 10:23] VITALS: BP 148/66; PULSE 65; RESP 20; TEMP 36.6; O2SAT 99
[2024-06-18 10:39] VITALS: BP 152/76; PULSE 64; RESP 20; TEMP 37.2; O2SAT 96
[2024-06-23 10:06] VITALS: BP 154/76; PULSE 68; RESP 20; TEMP 37.1; O2SAT 99
[2024-06-25 10:04] VITALS: BP 150/80; PULSE 60; RESP 20; TEMP 36.9; O2SAT 98
--- NOTE | 2024-06-25 10:31 | PC.NURSE ---
No nursing group due to nurse meeting.
--- NOTE | 2024-06-26 12:20 | WPDSLSPROGRE ---
Progress HPI Progress HPI Visit Attended By patient and staff History Obtained From patient Chief Complaint 2 week medication follow-up HPI patient is being seen for depression and anxiety. At our last visit we increased his Cymbalta to 40 mg q.a.m. and he feels that this is helping with his mood. In addition, he continues to sleep better than I have in years on a combination of hydroxyzine 10 mg q.h.s. with Ambien. We told him that he should not take the Xanax with his nighttime medicine. He does acknowledge that he seems to get worse at nighttime, and I suggested that this may be because things are dark, quiet, and he is not able to distract himself as effectively. enjoys program and participates well. Working on anxiety, grief, and other relevant issues. Average Number of Hours of Sleep 6 Sleep Quality difficulty falling asleep Change in PMFSH Releveant to Presenting Illness Yes Describe Changes in PMFSH Improved sleep and mood as above Review of Systems Review of Systems Constitutional Reports fatigue and generalized weakness Eyes Reports WNL ENT Reports WNL Respiratory Reports WNL Cardiovascular Reports other ( hypertension) Gastrointestinal Reports other ( hiatal hernia diverticulosis) Musculoskeletal Reports abnormal gait, Reports assistive device, Reports diminished strength, Reports muscle stiffness and Reports other ( osteoarthritis chronic pain) Neurologic Reports other ( CVA x2, myasthenia gravis) Skin Reports WNL ADL's Reports WNL Exam Physical Exam Review of Lab Studies n/a Hygiene good General Behavior/Attitude Toward Examiner pleasant and cooperative Pain Yes Pain Location generalized Pain Characteristics chronic and aching Psychiatric Exam Level of Consciousness alert Orientation person, place, time and situation Speech normal rate/tone/volume/prosody and coherent Language able to follow instructions or commands Mood less depressed/anxious Affect full range, appropriate and congruent Thought Processes/Form logical, linear and goal directed Thought Content diminished depressive and anxiety symptoms Delusions none Homicidal/Assaultive Ideation none Suicidal Ideation none Hallucinations none Attention/Concentration focused Attention/Concentration Testing Methods observation/interview Short Term Memory Impairment none STM Testing Methods clinical interview (assessment/observation) 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 Memory Impairment none LTM Testing Methods recall of biographical information Intellectual Functioning roughly average Intellectual Functioning Assessed By current events Insight fair and improving Insight Assessed By ability to recognize & acknowledge mental illness, ability to understand the implications of mental illness, understanding of treatment options and ability to comply with treatment Judgement fair and improving Judgement Assessed By exploring recent decision-making MMSE n/a Patient Assets patient is willing to accept treatment, able to perform ADLs Patient Liabilities chronic pain, mobility issues, recent of son Assessment and Plan Clinical Impression/Diag Clinical Impression/Diagnosis F 33.1, progressing well Progress Overview Reason for Continued Services in an Intensive Outpatient Program continued impaired mood and.or depression, patient would decompenste at a lower level of care, not at baseline level of functioning and high risk for relapse Treatment To Be Provided medication management and group/individual/rec therapy Discharge Disposition/Level of Care PCP Anticipated Discharge 8-12 weeks Certification Statement Certification Statement I believe this patient requires the services of the Intensive Outpatient Program and that there is reasonable expectation that the patient will make timely and significant practical improvement in the presenting acute symptoms as a result of this Intensive Outpatient Program. I do not believe this patient will benefit from a lesser level of care or could be adequately and appropriately treated in a less restrictive environment. My decision is based on the preceding clinical information.
[2024-07-02 09:36] VITALS: BP 142/60; PULSE 60; RESP 20; TEMP 36.4; O2SAT 99
[2024-07-07 09:54] VITALS: BP 121/67; PULSE 62; RESP 18; TEMP 36.4; O2SAT 97
[2024-07-09 09:40] VITALS: BP 135/62; PULSE 70; RESP 18; TEMP 36.3; O2SAT 96
[2024-07-14 09:41] VITALS: BP 136/80; PULSE 81; RESP 20; TEMP 36.6; O2SAT 99
[2024-07-16 09:40] VITALS: BP 146/78; PULSE 66; RESP 18; TEMP 36.5; O2SAT 99
--- NOTE | 2024-07-17 11:48 | P.PN_ITS ---
Progress HPI Progress HPI Visit Attended By patient History Obtained From patient Chief Complaint Better HPI this is a routine follow-up for depression and anxiety. There has been some confusion about what medication he is taking, and so the nurse asked him to bring in all of his medications. Apparently 1 of the bottles was Remeron 7.5 mg q.h.s. which we did not give him because at 1 point we asked him if he wanted to try this and he said that he tried in the past it made him too sedated. Apparently he obtained this from some doctor online. He does say that he is not taking it however, and is only on what we have put him on, Cymbalta 40 mg q.a.m., hydroxyzine 10 mg q.h.s., as well as Ambien. He is wondering about taking another hydroxyzine when he wakes up at night because his pharmacist said that he could. Enjoys program and participates appropriately. Working on topics such as anxiety, grief, and other relevant issues. he said that he recently had an episode when he was tired and his eyelid was drooping. He had been seeing a neurologist in [place] who was following his myasthenia gravis who recently retired, but patient plans to see a neurologist in [place] to f jayalow-up with this. 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, myasthenia gravis) Skin Reports WNL ADL's Reports WNL Exam Physical Exam Review of Lab Studies n/a Hygiene good General Behavior/Attitude Toward Examiner pleasant and cooperative Pain Yes Pain Location generalized Pain Characteristics chronic and aching Psychiatric Exam Level of Consciousness alert Orientation person, place, time and situation Speech normal rate/tone/volume/prosody and coherent Language able to follow instructions or commands Mood less depressed/anxious Affect full range, appropriate and congruent Thought Processes/Form logical, linear and goal directed Thought Content diminished depressive and anxiety symptoms Delusions none Homicidal/Assaultive Ideation none Suicidal Ideation none Hallucinations none Attention/Concentration focused Attention/Concentration Testing Methods observation/interview Short Term Memory Impairment none STM Testing Methods clinical interview (assessment/observation) Care Home Memory Impairment none LTM Testing Methods recall of biographical information Intellectual Functioning roughly average Intellectual Functioning Assessed By fund of knowledge and current events Insight fair and improving Insight Assessed By ability to recognize & acknowledge mental illness, ability to understand the implications of mental illness, understanding of treatment options and ability to comply with treatment Judgement fair Judgement Assessed By exploring recent decision-making MMSE n/a Patient Assets able to perform ADLs, willing to accept treatment Patient Liabilities chronic pain, mobility issues, recent of son Assessment and Plan Clinical Impression/Diag Clinical Impression/Diagnosis F 33.1. Encourage medication compliance, monitor meds, continue IOP Progress Overview Reason for Continued Services in an Intensive Outpatient Program continued impaired mood and.or depression, patient would decompenste at a lower level of care, not at baseline level of functioning and high risk for relapse Treatment To Be Provided medication management Discharge Disposition/Level of Care PCP Anticipated Discharge 8 weeks Certification Statement Certification Statement I believe this patient requires the services of the Intensive Outpatient Program and that there is reasonable expectation that the patient will make timely and significant practical improvement in the presenting acute symptoms as a result of this Intensive Outpatient Program. I do not believe this patient will benefit from a lesser level of care or could be adequately and appropriately treated in a less restrictive environment. My decision is based on the preceding clinical information.
[2024-07-22 10:34] VITALS: BP 146/75; PULSE 55; RESP 20; TEMP 36.5; O2SAT 97
[2024-07-24 10:17] VITALS: BP 130/60; PULSE 60; RESP 20; TEMP 37; O2SAT 99
--- NOTE | 2024-07-24 11:03 | PC.NURSE ---
No nursing group due to MD visit.
[2024-07-28 10:54] VITALS: BP 140/82; PULSE 62; RESP 20; TEMP 37.2; O2SAT 100
== END 2024-07-30 23:59 | disposition home or self-care (01) ==
LOC: CHSSENLIFE 10:00
PROVIDERS: PCP Internal Medicine; Visit Provider Psychiatry & Neurology Psychiatry
DX: F33.1 Major depressive disorder, recurrent, moderate (principal)
CPT/HCPCS: 90792; 90837; 90853; 99213; 99214; G0463

== ENCOUNTER 2024-10-20 10:00 | Outpatient (RCR) | payer MEDICARE, SELFPAY ==
[2024-07-31 00:02] VITALS: BP 140/82; PULSE 62; RESP 20; TEMP 37.2; O2SAT 100
[2024-07-31 10:14] VITALS: BP 100/60; PULSE 77; RESP 20; TEMP 36.9; O2SAT 97
--- NOTE | 2024-07-31 11:05 | PC.NURSE ---
No nursing group due to MD visit.
[2024-08-04 10:12] VITALS: BP 136/60; PULSE 60; RESP 20; TEMP 36.9; O2SAT 98
[2024-08-05 10:43] VITALS: BP 142/73; PULSE 60; RESP 20; TEMP 36.6; O2SAT 98
[2024-08-11 09:56] VITALS: BP 140/86; PULSE 62; RESP 20; TEMP 37.1; O2SAT 100
--- NOTE | 2024-08-14 11:28 | WPDSLSPROGRE ---
Progress HPI Progress HPI Visit Attended By patient, family member and staff History Obtained From patient and family member Patient Stated Chief Complaint so much better HPI this is a routine follow-up for depression anxiety. Patient is accompanied by his . Both patient and his feel he is doing much better, with less anxiety, sleeping well. Is supposed be on a combination of Cymbalta 40 mg q.a.m., hydroxyzine 10 mg q.h.s., and Ambien. However he says he has been taking 80 mg of Cymbalta a day, but we do not see this reflected on the orders. We are going to check with the pharmacy. At any rate again, he is doing much better, only complains of fatigue, but this may be partially due to his myasthenia gravis. Will be following up with his neurologist in April. Enjoys program and participates appropriately. Working on topics such as anxiety, grief, and other relevant issues. Average Number of Hours of Sleep 7 Sleep Quality difficulty falling asleep Review of Systems Review of Systems Constitutional Reports fatigue and generalized weakness Eyes Reports WNL ENT Reports WNL Respiratory Reports WNL Cardiovascular Reports other ( Hypertension, diverticulosis) Gastrointestinal Reports other ( hiatal hernia, diverticulosis) Musculoskeletal Reports abnormal gait, Reports assistive device, Reports diminished strength, Reports muscle stiffness and Reports other ( osteoarthritis, chronic pain) Neurologic Reports other ( CVA x2, my senior gravis) Skin Reports WNL ADL's Reports WNL Exam Physical Exam Review of Lab Studies n/a Hygiene good General Behavior/Attitude Toward Examiner pleasant and cooperative Pain Yes Pain Location generalized Pain Characteristics chronic and aching Psychiatric Exam Level of Consciousness alert Orientation person, place, time and situation Speech normal rate/tone/volume/prosody and coherent Language able to follow instructions or commands Mood less depressed/anxious Affect full range, appropriate and congruent Thought Processes/Form logical, linear and goal directed Thought Content diminished depressive and anxiety symptoms Delusions none Homicidal/Assaultive Ideation none Suicidal Ideation none Hallucinations none Attention/Concentration focused Attention/Concentration Testing Methods observation/interview Short Term Memory Impairment none STM Testing Methods clinical interview (assessment/observation) 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 Memory Impairment none LTM Testing Methods recall of biographical information Intellectual Functioning roughly average Intellectual Functioning Assessed By fund of knowledge Insight fair and improving Insight Assessed By ability to recognize & acknowledge mental illness, ability to understand the implications of mental illness, understanding of treatment options and ability to comply with treatment Judgement fair and improving Judgement Assessed By exploring recent decision-making MMSE n/a Patient Assets able to perform ADLs, willing to accept treatment Patient Liabilities chronic pain, mobility issues, recent of son Assessment and Plan Clinical Impression/Diag Clinical Impression/Diagnosis F 33.1, progressing well, monitor meds, continue IOP. Will confirm Cymbalta dose Progress Overview Reason for Continued Services in an Intensive Outpatient Program continued impaired mood and.or depression, patient would decompenste at a lower level of care, not at baseline level of functioning and high risk for relapse Treatment To Be Provided medication management and group/individual/rec therapy Discharge Disposition/Level of Care PCP Anticipated Discharge 4-6 weeks
[2024-08-18 10:00] VITALS: BP 136/72; PULSE 62; RESP 20; TEMP 36.9; O2SAT 99
--- NOTE | 2024-08-20 10:16 | PC.NURSE ---
No nursing group due to MD visit.
[2024-08-20 10:17] VITALS: BP 128/67; PULSE 60; RESP 20; TEMP 36.7; O2SAT 98
[2024-08-25 09:51] VITALS: BP 140/73; PULSE 67; RESP 20; TEMP 36.9; O2SAT 99
[2024-08-27 10:06] VITALS: BP 132/71; PULSE 62; RESP 18; TEMP 37; O2SAT 98
[2024-09-01 10:15] VITALS: BP 134/77; PULSE 60; RESP 18; TEMP 36.6; O2SAT 99
[2024-09-03 09:48] VITALS: BP 132/82; PULSE 76; RESP 20; TEMP 36.8; O2SAT 98
--- NOTE | 2024-09-04 11:01 | WPDSLSPROGRE ---
Progress HPI Progress HPI Visit Attended By patient and staff History Obtained From patient Patient Stated Chief Complaint lot better than I was HPI This is a routine follow-up for depression and anxiety. Patient is doing well. He says that he is a lot better than I was. He says that his evening anxiety is especially diminished, up to 90%. He does say that he is pooped out all the time, but attributes this to his myasthenia gravis. Continuing Cymbalta 40 mg q.a.m., hydroxyzine 10 mg q.h.s., Ambien. Will be following up with his neurologist in April. Working on topics such as positive thinking, and others. 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, myasthenia gravis) Skin Reports WNL ADL's Reports WNL Exam Physical Exam Review of Lab Studies n/a Hygiene good General Behavior/Attitude Toward Examiner pleasant and cooperative Pain Yes Pain Location generalized Pain Characteristics chronic and aching Psychiatric Exam Level of Consciousness alert Orientation person, place, time and situation Speech normal rate/tone/volume/prosody and coherent Language able to follow instructions or commands Mood less anxious Affect full range, appropriate and congruent Thought Processes/Form logical, linear and goal directed Thought Content diminished depressive and anxiety symptoms Delusions none Homicidal/Assaultive Ideation none Suicidal Ideation none Hallucinations none Attention/Concentration focused Attention/Concentration Testing Methods observation/interview Short Term Memory Impairment none STM Testing Methods clinical interview (assessment/observation) 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 Memory Impairment none LTM Testing Methods recall of biographical information Intellectual Functioning roughly average Intellectual Functioning Assessed By fund of knowledge Insight fair and improving Insight Assessed By ability to recognize & acknowledge mental illness, ability to understand the implications of mental illness, understanding of treatment options and ability to comply with treatment Judgement fair and improving Judgement Assessed By exploring recent decision-making MMSE n/a Patient Assets able to perform ADLs, willing to accept treatment Patient Liabilities chronic pain, mobility issues, recent of son Assessment and Plan Clinical Impression/Diag Clinical Impression/Diagnosis F 33.1, progressing well, monitor meds, continue IOP Progress Overview Reason for Continued Services in an Intensive Outpatient Program continued impaired mood and.or depression, patient would decompenste at a lower level of care, not at baseline level of functioning and high risk for relapse Treatment To Be Provided medication management and group/individual/rec therapy Anticipated Discharge 4-6 weeks
[2024-09-08 09:54] VITALS: BP 120/74; PULSE 60; RESP 20; TEMP 36.8; O2SAT 97
[2024-09-10 10:03] VITALS: BP 142/82; PULSE 60; RESP 20; TEMP 36.8; O2SAT 98
[2024-09-16 10:00] VITALS: BP 142/75; PULSE 60; RESP 20; TEMP 36.9; O2SAT 100
[2024-09-17 09:45] VITALS: BP 142/78; PULSE 60; RESP 18; TEMP 36.8; O2SAT 99
[2024-09-22 09:50] VITALS: BP 130/66; PULSE 60; RESP 20; TEMP 36.8; O2SAT 98
[2024-09-24 10:11] VITALS: BP 148/60; PULSE 58; RESP 18; TEMP 37.1; O2SAT 97
--- NOTE | 2024-09-24 10:26 | PC.NURSE ---
No nursing group due to MD visit.
--- NOTE | 2024-09-24 13:51 | P.PN_ITS ---
Progress HPI Progress HPI Visit Attended By patient and staff History Obtained From patient Patient Stated Chief Complaint better HPI This is a follow-up for depression and anxiety. Patient continues to do well. Evening anxiety significantly diminished. Reports low energy but again attributes this to his myasthenia gravis. Attends 2 days a week, working on topics such as anxiety depression. Continuing Cymbalta 40 mg q.a.m., hydroxyzine 10 mg q.h.s., Ambien CR 12.5 mg q.h.s. he will be following up with his neurologist in April. He did ask if antidepressants could cause weight gain and I told him that this is certainly possible, but I also reminded him that he is unable to do much physical activity given his impaired mobility. Average Number of Hours of Sleep 7 Review of Systems Review of Systems Constitutional Reports fatigue and generalized weakness Eyes Reports WNL ENT Reports WNL Respiratory Reports WNL Cardiovascular Reports other ( Hypertension) Gastrointestinal Reports other ( diverticulosis) Musculoskeletal Reports abnormal gait, Reports assistive device, Reports diminished strength, Reports muscle stiffness and Reports other ( osteoarthritis, chronic pain) Neurologic Reports other ( CVA x2, myasthenia gravis) Skin Reports WNL ADL's Reports WNL and Reports independent Exam Physical Exam Review of Lab Studies n/a Hygiene good General Behavior/Attitude Toward Examiner pleasant and cooperative Pain Yes Pain Location generalized Pain Characteristics chronic and aching Psychiatric Exam Level of Consciousness alert Orientation person, place, time and situation Speech normal rate/tone/volume/prosody and coherent Language able to comprehend questions Mood better Affect full range, appropriate and congruent Thought Processes/Form logical, linear and goal directed Thought Content diminished depressive and anxiety symptoms Delusions none Homicidal/Assaultive Ideation none Suicidal Ideation none Hallucinations none Attention/Concentration focused Attention/Concentration Testing Methods observation/interview Short Term Memory Impairment none STM Testing Methods clinical interview (assessment/observation) 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 Memory Impairment none LTM Testing Methods recall of biographical information Intellectual Functioning roughly average Intellectual Functioning Assessed By current events Insight fair and improving Insight Assessed By ability to recognize & acknowledge mental illness, ability to understand the implications of mental illness, understanding of treatment options and ability to comply with treatment Judgement fair and improving Judgement Assessed By exploring recent decision-making MMSE n/a Patient Assets able to perform ADLs, willing to accept treatment Patient Liabilities chronic pain, mobility issues, recent of son Assessment and Plan Clinical Impression/Diag Clinical Impression/Diagnosis F 33.1, progressing well. Monitor meds, continue IOP Progress Overview Reason for Continued Services in an Intensive Outpatient Program continued impaired mood and.or depression, patient would decompenste at a lower level of care, not at baseline level of functioning and high risk for relapse Treatment To Be Provided medication management and group/individual/rec therapy Discharge Disposition/Level of Care outpatient therapy Anticipated Discharge 4-6 weeks
[2024-09-29 10:48] VITALS: BP 146/80; PULSE 87; RESP 20; TEMP 36.8; O2SAT 97
[2024-10-01 10:08] VITALS: BP 140/80; PULSE 64; RESP 18; TEMP 36.8; O2SAT 99
[2024-10-06 10:01] VITALS: BP 146/68; PULSE 60; RESP 18; TEMP 36.9; O2SAT 97
[2024-10-08 09:49] VITALS: BP 136/82; PULSE 60; RESP 18; TEMP 36.8; O2SAT 96
[2024-10-13 10:23] VITALS: BP 138/72; PULSE 62; RESP 20; TEMP 36.8; O2SAT 98
[2024-10-15 10:33] VITALS: BP 142/84; PULSE 62; RESP 20; TEMP 36.6; O2SAT 98
--- NOTE | 2024-10-16 12:02 | WPDSLSPROGRE ---
Progress HPI Progress HPI Visit Attended By patient and staff History Obtained From patient Patient Stated Chief Complaint I think I'm doing OK HPI This is a follow-up for depression and anxiety. Patient feels he is doing very well. 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 Has gained about 5-6 lb, and I told him this could be a combination of antidepressant side effects, physical inactivity, and improvement in depression. He continues on Cymbalta 40 mg q.a.m., hydroxyzine 10 mg q.h.s., Ambien CR 12.5 mg q.h.s.. Sleeps about 6-7 hours at night. 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, myasthenia gravis) Skin Reports other ADL's Reports WNL and Reports independent Exam Physical Exam Review of Lab Studies n/a Hygiene good General Behavior/Attitude Toward Examiner pleasant Pain Yes Pain Location generalized Pain Characteristics chronic and aching Psychiatric Exam Level of Consciousness alert Orientation person, place, time and situation Speech normal rate/tone/volume/prosody and coherent Language able to follow instructions or commands Mood less depressed Affect full range, appropriate and congruent Thought Processes/Form logical, linear and goal directed Thought Content diminished depressive and anxiety symptoms Delusions none Homicidal/Assaultive Ideation none Suicidal Ideation none Hallucinations none Attention/Concentration focused Attention/Concentration Testing Methods observation/interview Short Term Memory Impairment none STM Testing Methods clinical interview (assessment/observation) Assisted Memory Impairment none LTM Testing Methods recall of biographical information Intellectual Functioning roughly average Intellectual Functioning Assessed By abstract reasoning and fund of knowledge Insight fair and improving Insight Assessed By ability to recognize & acknowledge mental illness, ability to understand the implications of mental illness, understanding of treatment options and ability to comply with treatment Judgement fair and improving Judgement Assessed By exploring recent decision-making MMSE n/a Patient Assets able to perform ADLs, willing to accept treatment Patient Liabilities chronic pain, mobility issues, recent of son Assessment and Plan Clinical Impression/Diag Clinical Impression/Diagnosis F 33.1, progressing well. Continue IOP, monitor meds Progress Overview Reason for Continued Services in an Intensive Outpatient Program continued impaired mood and.or depression, patient would decompenste at a lower level of care, not at baseline level of functioning and high risk for relapse Treatment To Be Provided medication management and group/individual/rec therapy Discharge Disposition/Level of Care PCP
[2024-10-20 11:18] VITALS: BP 124/73; PULSE 63; RESP 18; TEMP 36.9; O2SAT 96
--- NOTE | 2024-10-22 11:42 | SLSTHERAPY ---
Piyush no-showed/no-called for 10/22/2024 group; phone call to Piyush' & 's numbers; no answers; voicemail message left requesting he contact office; Piyush is scheduled to return to group 10/27/2024.
--- NOTE | 2024-10-23 07:47 | SLSTHERAPY ---
10/22/2024 Voicemail message received from Piyush canceling 10/22/2024 group; Piyush is scheduled to return to group 10/28/2024.
--- NOTE | 2024-10-27 08:55 | SLSTHERAPY ---
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
--- NOTE | 2024-10-28 08:56 | SLSTHERAPY ---
Phone call to Piyush to inform him of adjusted group time for 10/29/2024; no answer; messages left on both home & cell phones.
== END 2024-10-29 23:59 | disposition home or self-care (01) ==
LOC: CHSSENLIFE 10:00
PROVIDERS: PCP Internal Medicine; Visit Provider Psychiatry & Neurology Psychiatry
DX: F33.1 Major depressive disorder, recurrent, moderate (principal)
CPT/HCPCS: 90853; 99213; G0463

== ENCOUNTER 2024-11-12 12:37 | Outpatient (CLI) | payer MEDICARE, SELFPAY ==
--- NOTE | ~2024-11-12 | US_ITS ---
EXAMINATION: US carotid duplex BI DATE: 11/12/2024 13:09 INDICATION: Follow-up carotid stenosis TECHNIQUE: Grayscale, color Doppler, and pulsed Doppler images of the cervical carotid arteries were obtained. The degree of vessel stenosis is placed in one of the following categories: normal, <50%, 5 0-69%, >=70% but less than near-occlusion, near-occlusion, or total occlusion. Note that percent sten osis relative to normal distal artery lumen diameter is indirectly measured from velocity measurement s as described by Goran, et al. Radiology 2003; 229:340-346. Notes: Normal: Peak systolic velocity <125 centimeters/sec and no plaque <50%. Peak systolic velocity <125 ( EDV <40; ICA/CCA PSV ratio <2.0; used these factors only a tandem lesions or low cardiac output or co ntralateral disease) 50-69 %: PSV 125-230 (EDV 40-100; ratio 2-4) >= 70% but less than near occlusion: PSV greater than 230 (EDV > 100; ratio> 4.0) Near Occlusion: PSV that is variable; markedly narrowed lumen Occlusion: Absent flow on color/spectral Doppler and no lumen on colon scale. COMPARISON: None. FINDINGS: RIGHT: The right common carotid artery (CCA) peak systolic velocity (PSV) is 105 cm/s. The right internal ca rotid artery (ICA) PSV is 97 cm/s. The right ICA end-diastolic velocity (EDV) is 16 cm/s. The right I CA/CCA PSV ratio is 0.92. The external carotid artery (ECA) PSV is 180 cm/s. There is antegrade flow in the right vertebral artery. LEFT: The left CCA PSV is 102 cm/s. The left ICA PSV is 70 cm/s. The left ICA EDV is 15 cm/s. The left ICA/ CCA PSV ratio is 0.69. The ECA PSV is 137 cm/s. There is antegrade flow in the left vertebral artery . IMPRESSION: 1. Less than 50% stenosis in the right internal carotid artery by sonographic criteria. 2. Less than 50% stenosis in the left internal carotid artery by sonographic criteria. Reviewed, dictated and finalized at location A. IMPRESSION: 1. Less than 50% stenosis in the right internal carotid artery by sonographic rauhl thornton. 2. Less than 50% stenosis in the left internal carotid artery by sonographic joel guerrero.
--- OUTSIDE RECORDS SUMMARY | 2024-11-12 12:44 | XMS_ITS | Encounter Summary ---
Author Organization [facility] Address [address] [place] [address] Care Team Providers Care Cloth Burler Name Role Phone Remington Nagy MD Primary Care Provider [phone] Peter Brenner MD Unavailable Unavailabl e Ev Mcnulty MD Unavailable Encounter Details Date Type Department Care Team (Late Contact Info) Description 05/20/2015 Abstract [facility] [address] [place] [address] Peter Brenner MD Social History Tobacco Use Types Packs/Day Years Used Date Smoking Tobacco: Former Cigarettes Q uit: 1975 Smokeless Tobacco: Never Alcohol Use Standard Drinks/Week Comments No 0 (1 standard drink = 0.6 oz pur e alcohol) Sex and Gender Information Value Date Recorded Sex Assigned at Not on file Legal Sex Male 9:05 PM CDT Gender Identity Not on file Sexual Orientation Not on file 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 [address] [place] [address] Ev Mcnulty MD [address] [place] [address] 04/30/2025 10:30 AM DRAFTER CONSTRUCTION Appointment [address] [place] [address] Ev Mcnulty MD [address] [place] [address] 05/04/2025 12:45 PM DRAFTER CONSTRUCTION Office Visit [facility] [place] [address] Ev Mcnulty MD [address] [place] [address] documented as of this encounter Visit Diagnoses Not on filedocumented in this encounter Additional Health Concerns Infection Onset Date Last Indicated Resolved Time COVID-19 Rule Out 06/30/2022 07/01/2022 07/01/2022 7:17 PM DRAFTER CONSTRUCTION documented as of this encounter Care Teams Cloth Burler Relationship Specialty Start Date End Date Remington Nagy MD [address] [place] [phone] PCP - General INTERNAL MEDICINE 05/26/16 Peter Brenner MD [address] [place] [address] [place] Development Manager CARDIOVASCULAR DISEASE 05/26/16 05/20/24 Ev Mcnulty MD [address] [place] [address] [place] [employer] Manager CARDIOVASCULAR DISEASE 05/23/24 documented as of this encounter
--- OUTSIDE RECORDS SUMMARY | 2024-11-12 12:44 | XMS_ITS | Encounter Summary ---
Author Organization [facility] Address [address] [place] [address] Care Team Providers Care Telecommunications Linesworker Name Role Phone Remington Nagy MD Primary Care Provider [phone] Peter Brenner MD Unavailable Unavailabl e Ev Mcnulty MD Unavailable Encounter Details Date Type Department Care Team (Late st Contact Info) Description 07/03/2022 Hospital Follow-up Call [facility] [address] [place] [address] Beth Rea, RN Social History Tobacco Use Types Packs/Day Years Used Date Smoking Tobacco: Former Cigarettes Q uit: 1975 Smokeless Tobacco: Never Alcohol Use Standard Drinks/Week Comments No 0 (1 standard drink = 0.6 oz pur e alcohol) Humiliation, Afraid, Rape, and Kick questionnair e Answer Date Recorded Within the last year, have y ou been afraid of your partner or ex-partner? No 06/30/2022 Within the last year, have y ou been humiliated or emotionally abused in other ways by your partner or ex-partner? No Within the last year, have y ou been kicked, hit, slapped, or otherwise physically hurt by your partner or ex-partner? No 06/30/2022 Within the last year, have y ou been raped or forced to have any kind of sexual activity by your partner or ex-partner? No 06/30/2022 Overall Financial Resource Strain (CARDIA) Answe r Date Recorded How hard is it for you to pa y for the very basics like food, housing, medical care, and heating? Not hard at all 06/29/2022 Hunger Vital Sign Answer Date Recorded Within the past 12 months, y ou worried that your food would run out before you got the money to buy more. Never true 07/01/19 23 Within the past 12 months, t he food you bought just didn't last and you didn't have money to get more. Never true 06/30/2022 PRAPARE - Transportation Answer Date Re corded In the past 12 months, has l ack of transportation kept you from medical appointments or from getting medications? No 12/2022 In the past 12 months, has l ack of transportation kept you from meetings, work, or from getting things needed for daily living? No 06/29/2022 Housing Stability Vital Sign Answer Gerard e Recorded In the last 12 months, was t here a time when you were not able to pay the mortgage or rent on time? No 06/30/2022 In the last 12 months, how many places have you lived? 1 06/30/2022 In the last 12 months, was t here a time when you did not have a steady place to sleep or slept in a skilled nursing (including now)? 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 No / Unsure 06/29/2022 3:43 PM MEDICAL STAFF PHYSICIAN documented as of this encounter Functional Status * Are you deaf or do you have serious difficulty hearing Answer Date of Assessment Author Status No 07/01/2022 3:59 PM MEDICAL STAFF PHYSICIAN Johanne Mcdonald RN Active * Are you blind or do you have serious difficulty seeing, even when wearing glasses? Answer Date of Assessment Author Status No 07/01/2022 3:59 PM Johanne Guillermo RN Active * Do you have serious difficulty walking or climbing stairs? Answer Date of Assessment Author Status No 07/01/2022 3:59 PM Johanne Guillermo RN Active * Do you have difficulty dressing or bathing? Answer Date of Assessment Author Status No 07/01/2022 3:59 PM Johanne Guillermo RN Active * Because of a physical, mental, or emotional condition, do you have difficulty doing errands alone such as visiting a doctor's office or shopping? Answer Date of Assessment Author Status No 07/01/2022 3:59 PM Johanne Guillermo RN Active documented as of this encounter Mental Status * Because of a physical, mental, or emotional condition, do you have serious difficulty concentrating, remembering, or making decisions? Answer Entry Date Author Status No 07/01/2022 3:59 PM Johanne Guillermo RN Active documented in this encounter Plan of Treatment Upcoming Encounters Date Type Department Care Team (Late st Contact Info) Description 11/20/2024 10:00 AM CDT Appointment [facility] [address] [place] [address] Ev Mcnulty MD [address] [place] [address] 04/30/2025 10:30 AM MEDICAL STAFF PHYSICIAN Appointment [facility] [address] [place] [address] Ev Mcnulty MD [address] [place] [address] 05/04/2025 12:45 PM MEDICAL STAFF PHYSICIAN Office Visit [facility] [address] [place] [address] Ev Mcnulty MD [address] [place] [address] documented as of this encounter Visit Diagnoses Not on filedocumented in this encounter Care Teams Telecommunications Linesworker Relationship Specialty Start Date End Date Remington Nagy MD [address] [place] [address] PCP - General INTERNAL MEDICINE 05/26/16 Peter Brenner MD [address] [place] [address] [employer] Cotton Classer CARDIOVASCULAR DISEASE 05/26/16 05/20/24 Ev Mcnulty MD [address] [place] [address] [employer] Cotton Classer CARDIOVASCULAR DISEASE 05/23/24 documented as of this encounter
--- OUTSIDE RECORDS SUMMARY | 2024-11-12 12:44 | XMS_ITS | Continuity of Care Document ---
Author Name [facility] Organization [facility] Care Team Providers Care Foot Tender Name Role Phone [facility] Unavailable Unavailable Problems Combined list of problems from [facility] and [facility] facilities. It does not include entries that were removed or entered in error. Problem Status Onset Date Problem Type Date of Resolution Comments Source Dermatophytosis of nail (ICD-9-CM 110.1) Active Condition [facility] GERD * (ICD-9-CM 530.81) Active Condition [facility] HTN * (ICD-9-CM 401.9) Active Condition [facility] Hypertriglyceridemia Active Condition [facility] Obesity * (ICD-9-CM 278.00) Active Condition [facility] Medications Combined list of outpatient medications from [facility] and [facility] facilities.Medications provided include 1) outpatient medications from the last 15 months, and 2) patient-reported medications. Medication Details Route Status Patient Instructions Prescription Expires Prescription Number Last Dispense Date Ordering Provider Order Date Order Qty Source MULTIVITAMI NS CAP/TAB TAKE ONE TABLET BY MOUTH EVERY DAY ORAL ACTIVE NAYELY CARY 2003 [facility] Immunizations Combined list of available immunizations from the [facility] and [facility] facilities. 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 Status Comments Source INFLUENZA, UNSPECIFIED FORMULATION 2007 88 complet ed [facility] INFLUENZA, UNSPECIFIED FORMULATION 2006 88 complet ed [facility] INFLUENZA, UNSPECIFIED FORMULATION 2005 PAVITHRA VIDALES 88 complet ed [facility] INFLUENZA (HISTORICAL) 2004 88 complet ed [facility] INFLUENZA (HISTORICAL) 2004 88 complet ed [facility] TD(ADULT) UNSPECIFIED FORMULATION 2003 139 complet ed [facility] Encounters Combined list of: 1) Encounters from [facility] of Veterans Affairs facilities going backup to the last 18 months, not all VA inpatient encounters are included; 2) Encounters from the Department of Defense facilities going backup to 280 months. Location Location Details Encounter Type Encounter Number Reason For Visit Attending Provider ADM Date DC Date Status Disposition Source [facility] Outpatient Encounter [id number] 06/03 [facility] Social History Combined list of available smoking, tobacco, and other social history from Department of Defense and Veterans Affairs facilities. Social History Type Response Date Comment Sourc e Tobacco smoking status NHIS CURRENT NON-TOBACCO USER-HX OF USE 01/17/2006 [facility] History of tobacco use TOBACCO TERMINATION STAGE 01/17/2006 [facility] History of tobacco use CURRENT NON-TOBACCO USER-HX OF USE 03/15/2005 [facility] History of tobacco use CURRENT NON-TOBACCO USER-HX OF USE 06/01/2004 [facility] History of tobacco use LIFETIME NON-TOBACCO USER 03/10/2004 [facility]
--- OUTSIDE RECORDS SUMMARY | 2024-11-12 12:44 | XMS_ITS | Patient Health Record ---
Author Organization [facility] Address [address] [place], [place] [id number] Care Team Providers Care Health Records Technology Teacher Name Role Phone HERNAN QUISPE Unavailable [phone] Kaley Nagy Unavailable Unavailable Allergies Allergen (clinical drug ingredient) Drug/Non Drug Allergy documented on EMR Reaction Allergy Type Onset Date Status Substance with penicillin structure and antibacterial mechanism of action (substance) Penicillins Unknown Drug Allergy 05/18/2022 active Reason For Referral No Information Encounters Encounter Location Date Provider Diagnosis [facility] [address] [place], [place] [id number] 05/08/2024 HERNANCHANELLE ARCHEROOK Plantar wart B07.0 and Left foot pain M79.672 Assessments Encounter Date Diagnosis (ICD Code) Assessment Notes Treatment Notes Treatment Clinical Notes Section Notes 05/08/2024 Plantar wart (ICD-10 - B07.0) Verruca Plantaris: I educated the patient on verruca. I discussed various treatment plans and answered questions. I explained that verruca treatments often require multiple treatments. The skin lesion was ablated with topical cantherone. The patient was given verbal and written instructions on aftercare. 05/08/2024 Left foot pain (ICD-10 - M79.672) Plan Of Treatment No Information Insurance Providers Payer Name Payer Address Payer Phone Subscriber Number Group Number Insured Name Patient Relationship to Insured Coverage Start Date Coverage End Date Medicare Part B [place] [address] [place] [address] [id number] HECTOR THOMAS Self - patient is the insured 7 [facility] ATTN CLAIMS [address] [place] [address] [id number] HECTOR THMOAS Self - patient is the insured 5
--- OUTSIDE RECORDS SUMMARY | 2024-11-12 12:44 | XMS_ITS ---
Author Organization [facility] Address [address] [place], [place] [id number] Care Team Providers Care Office Cashier Name Role Phone HERNAN QUISPE Unavailable [phone] Kaley Nagy Unavailable Unavailable Allergies Allergen (clinical drug ingredient) Drug/Non Drug Allergy documented on EMR Reaction Allergy Type Onset Date Status Substance with penicillin structure and antibacterial mechanism of action (substance) Penicillins Unknown Drug Allergy 05/18/2022 active REASON FOR VISIT Patient has a painful lump of skin on the bottom of his left foot. It hurts to walk on Encounters Encounter Location Date Provider Diagnosis [facility] [address] [place], [place] [id number] 05/08/2024 HERNAN QUISPE Plantar wart B07.0 and Left foot pain [...] pain (ICD-10 - M79.672) Plan Of Treatment Treatment Notes Assessment Notes Plantar wart Verruca Plantaris: I educated the patient on verruca. I discussed various treatment plans and answered questions. I explained that verruca treatments often require multiple treatments. The skin lesion was ablated with topical cantherone. The patient was given verbal and written instructions on aftercare. Next Appt Details Follow Up: 2 Weeks, Reason: Debride and ablate verruca as needed Progress Notes * HECTOR THOMASDOB:1945 (79 yo M)Acc No.[id number]:05/08/2024 Patient: HECTOR TAVERAS Provider: James Quispe DPM :1945 A ge:78 Y S ex:Male Date:05/08/2024 Address:[address] [place], [place] [id number] Subjective: * Chief Complaints: * 1 . Patient has a painful lump of skin on the bottom of his left foot. It hurts to walk on. * HPI: H PI: New Complaint E stablished patient presents with a new complaint., Patient complains of an issue to a possible plantar wart on his right, ball of foot. Patient states he has had some pain and discomfort when walking on foot. Patient states this has been an issue for a few months now. MA: LB. * ROS: G eneral / Constitutional: Patient denies c hills, fever, weakness, night sweats. M usculoskeletal: Patient denies c hildhood foot problems, weakness. ? P eripheral Vascular: Patient denies u lceration of feet, cold extremities. ? S kin: Patient denies u lcerations, discoloration. ? N eurologic: Patient denies b alance difficulty, confusion, difficulty speaking, dizziness. * Medical History: * Medications: N one * Allergies: P enicillins: Allergy - Onset Date 05/18/2022. Objective: * Vitals: * Examination: C onstitutional: Constitutional T he patient is awake, alert, well developed, well groomed and well nourished. D ermatologic: Skin findings: S kin is thin, atrophic and lacking pedal hair. Verruca: T here is a single raised papillomatous skin lesion that demonstrates petechial bleeding after debridement to the plantar aspect of the left 1st metatarsal head. V ascular: Dorsalis pedis pulse: 1 /4, bilateral. Posterior tibial pulse: 1 /4, bilateral. Capillary refill: l ess than 3 seconds. Edema: N o edema, bilateral. N eurologic: Gross sensation G ross sensation is intact to light touch.? M usculoskeletal: Muscle Strength M uscle strength is 5/5 in regards to dorsiflexion, plantarflexion, inversion, and eversion in bilateral lower extremities. ? Assessment: * Assessment: 1. P lantar wart - B07.0 (Primary) 2 . L eft foot pain - M79.672 Plan: * Treatment: * Follow Up: 2 Weeks (Reason: Debride and ablate verruca as needed) * Billing Information: * Visit Code: 20800 Office Visit, New Pt., Level 3. * Procedure Codes: * Electronic signature of HERNAN QUISPE DPM on 11/12/2024 at 12:43 PM CDT Sign off status: Pending * Provider: James Quispe DPM Date: 0 05/08/2024 Generated for Rosalina meng/Gely/Carlaitting on: 0 11/12/2024 12:43 PM CDT History and Physical Notes * HPI (History of Present Illness) Category Sub-Category Detail Notes Category Not es HPI New Complaint Established malka ent presents with a new complaint., Patient complains of an issue to a possible plantar wart on his right, ball of foot. Patient states he has had some pain and discomfort when walking on foot. Patient states this has been an issue for a few months now. MA: LB Examination Category Sub-Category Detail Notes Category Not es Dermatologic Skin findings: Skin is thin, at rophic and lacking pedal hair Verruca: There is a single ra ised papillomatous skin lesion that demonstrates petechial bleeding after debridement to the plantar aspect of the left 1st metatarsal head Neurologic Gross sensation Gross sensation is intact to light touch Vascular Dorsalis pedis pulse: 1/4, bilateral Edema: No edema, bilateral Capillary refill: less than 3 seconds Posterior tibial pulse: 1/4, bilateral Musculoskeletal Muscle Strength Muscle strength is 5/5 in regards to dorsiflexion, plantarflexion, inversion, and eversion in bilateral lower extremities Constitutional Constitutional The patient is a wake, alert, well developed, well groomed and well nourished
--- OUTSIDE RECORDS SUMMARY | 2024-11-12 12:44 | XMS_ITS | Clinical Summary ---
Author Organization [facility] Address [address] [place] [address] Care Team Providers Care Plate Stacker Name Role Phone Remington Nagy MD Primary Care Provider [phone] Ev Doan MD Unavailable Allergies Active Allergy Reactions Criticality Noted Date Comments Tape Rash Low 04/29/2018 Reaction to clonidine patch only Beta Adrenergic Blockers Fatigue 10/01/2015 Iodine Unknown 06/29/2022 Patient has myasthenias gravis Duloxetine Hcl Other (see comment) 11/14/2023 Mental confusion Penicillins Unknown 04/29/2018 Spironolactone Other (see comment) 04/29/2018 Gynecomastia Medications zolpidem 10 MG tablet zolpidem Tablet 10 mg; take 1/2 tablet by mouth as needed; 0; 0; -Apr-2015; Active 6 Active HYDROcodone-miguelina taminophen (NORCO) 10-325 MG tablet Take 1 tablet by mouth every 6 (six) hours as needed for Pain. Active mycophenolate (CELLCEPT) 250 MG capsule Take 3 capsules (750 mg total) by mouth 2 (two) times daily. Active docusate sodium (COLACE) 100 MG capsule Take 1 capsule (100 mg total) by mouth 2 (two) times daily as needed. Active polyethylene glycol (GLYCOLAX) packet Take 240 mLs (17 g total) by mouth daily. Dissolve powder in 240 mL water Active tamsulosin (FLOMAX) 0.4 MG Cap TAKE 1 CAPSULE BY MOUTH DAILY 30 MINUTS FOLLOWING THE SAME MEAL EACH DAY 4 Active cloNIDine (CATAPRES) 0.1 MG tablet Take 1 tablet (0.1 mg total) by mouth 2 (two) times daily. 180 tablet 3 5 Active amiloride (MIDAMOR) 5 MG tablet TAKE 2 TABLETS BY MOUTH EVERY DAY 180 tablet 5 Active aspirin EC (ECOTRIN) 81 MG tablet Take 1 tablet (81 mg total) by mouth daily. 90 tablet 3 5 Active losartan-hydroC HLOROthiazide (HYZAAR) 100-25 MG tablet Take 1 tablet by mouth daily. 90 tablet 3 5 Active apixaban (ELIQUIS) 5 MG tablet Take 1 tablet (5 mg total) by mouth 2 (two) times daily. 180 tablet 3 5 Active aspirin EC (ECOTRIN) 81 MG tablet Take 1 tablet (81 mg total) by mouth daily. 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 (04/29/2018): mild without stenosis Family history of hypertension 04/29/2018 Former smoker 04/29/2018 Overview (04/29/2018): quit in 1974 CVA (cerebral vascular accident) ([facility]HS[facility]HC C) 04/29/2018 Encounters Date Type Department Care Team Description 11/04[facility]2024 [facility] [address] [place] [address] Ev Doan MD Reschedule 11/03/2024 [facility] [address] [place] [address] Ev Doan MD Other (Heart Monitor ) 10/27/2024 11:30 AM CDT Office Visit [facility] [place] [address] Ev Doan MD Heart Problem 10/27/2024 11:05 AM CDT - 10/27/2024 11:59 PM CDT Hospital Encounter [facility] [address] [place] [address] Ev Doan MD Discharge Disposition: Home or Self Care (Routine Discharge) 10/27/2024 Travel 10/23/2024 Telephone [facility] [address] [place] [address] Ev Doan MD Appointment Reminder 10/21/2024 Orders Only [facility] [address] [place] [address] Ev Doan MD from Last 3 Months Family History Medical History Relation Comments CHF Father Kidney Disease Father Hypertension Mother broken hip Mother Relation Status Comments Brother Alive Father (Age 84) Maternal Grandfather Maternal Grandmother Mother (Age 86) Paternal Grandfather Paternal Grandmother Sister Alive Social History Tobacco Use Types Packs/Day Years Used Date Smoking Tobacco: Former Cigarettes Q uit: 1975 Smokeless Tobacco: Never Tobacco Cessation:Counseling Given: Not Answered Alcohol Use Standard Drinks/Week Comments No 0 [...] place to sleep or slept in a usp (including now)? 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, thus, Agent [place] exposure Not on file Not on file Not on file Last Filed Vital Signs Vital Sign Reading Time Taken Comments Blood Pressure 131/85 10/27/2024 11:37 AM CDT Pulse 79 10/27/2024 11:37 AM CDT Temperature 37.6 C (99.6 F) 04/15/2023 3:27 PM 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 [address] Ev Doan MD [address] [place] [address] 04/30/2025 10:30 AM SALES CENTER ASSOCI[employer] [place] [address] Ev Doan MD [address] [place] [address] 05/04/2025 12:45 PM SALES CENTER ASSOCIATE Office Visit [facility] [address] [place] [address] Ev Doan MD [address] [place] [address] Health Maintenance Due Date Last Done Comments Hepatitis C 06/28/1963 Pneumococcal Vaccine: 50+ Years (1 of 2 - PCV) 1964 DTaP, Tdap and Td Vaccines ( 1 - Tdap) 03/11/2004 03/10/2004 Zoster Vaccines (1 of 2) 06/08/2008 04/13/2008 Annual Medicare Wellness Visit 2010 RSV Immunization or 60+ Years (1 - 1-dose 75+ series) 2020 COVID-19 Vaccine (3 - Pfizer risk series) 07/16/2020 06/18/2020, 05/28/2020 Meningococcal B Vaccine Aged Out No l onger eligible based on patient's age to complete this topic Meningococcal Vaccine Aged Out No danny isaac eligible based on patient's age to complete this topic RSV Immunizations Under 20 Months Aged Out No longer eligible b ased on patient's age to complete this topic Procedures Procedure Name Priority Date/Time Associated Diagnosis Comments ECG 12-LEAD Routine 10/27/2024 11:15 AM CDT Hypertension, unspecified type from Last 3 Months Results * ECG 12 lead (HOSPITAL PERFORMED ONLY) (10/27/2024 11:15 AM CDT) 10/27/2024 11:1 5 AM CDT Narrative [facility] - 10/28/2024 6:09 AM CDT [address] 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 [address] Test Date: 2024-10-27 Pat Name: PIYUSH THOMAS Department: 3 Room: Gender: Male Rental [employer] Porter: : 1945 Requested By: EV DOAN Order Number: [id number] Reading MD: Ev Doan Measurements Intervals [place] Rate: 68 P: 0 PA: 0 QRS: -18 QRSD: 122 T: 22 QT: 381 QTc: 407 Interpretive Statements ATRIAL FIBRILLATION POSSIBLE LATERAL MYOCARDIAL INFARCTION , PROBABLY OLD [30 ms Q WAVE IN I/aVL/V5/V6] ABNORMAL RHYTHM ECG us Ev Doan MD ECG ORDERABLES Final Result [facility] from Last 3 Months Insurance MEDICARE Advance Directives * Full Code (Latest Code Status on File) Date Activated Date Inactivated Comments 06/29/2022 9:47 PM 07/02/2022 12:25 PM Care Teams Plate Stacker Relationship Specialty Start Date End Date Remington Nagy MD [address] [place] [id number] PCP - General INTERNAL MEDICINE 05/26/16 Ev Doan MD [address] [place] [address] [place] Element Setter CARDIOVASCULAR DISEASE 05/23/24
--- OUTSIDE RECORDS SUMMARY | 2024-11-12 12:44 | XMS_ITS ---
Author Organization [facility] Address [address] [place], [place] [address] Care Team Providers Care Biological Scientist Name Role Phone HERNAN QUISPE Unavailable [phone] Kaley Nagy Unavailable Unavailable REASON FOR VISIT *Foot Pain-not feeling well Encounters Encounter Location Date Provider Diagnosis [address] [id number] 05/29/2024 HERNAN QUISPE Plan Of Treatment No Information Progress Notes * HECTOR THOMASDOB:1945 (79 yo M)Acc No.[id number]:05/29/2024 Patient: Pablo YANG HECTOR Provider: James Quispe DPM :1945 A ge:78 Y S ex:Male Date:05/29/2024 Address:[address] [place], [place] [id number] Subjective: * Chief Complaints: * 1 . *Foot Pain-not feeling well. * Medical History: Objective: * Vitals: Assessment: Plan: * Treatment: * Billing Information: * Visit Code: * Procedure Codes: * Electronic signature of HERNAN QUISPE DPM on 11/12/2024 at 12:43 PM CDT Sign off status: Pending * Provider: James Quispe DPM Date: 05/29/2024 Generated for Printi ng/Faxing/eTransmitting on: 0 11/12/2024 12:43 PM CDT
== END 2024-11-12 12:38 | disposition home or self-care (01) ==
LOC: CHSIMG 12:40
PROVIDERS: PCP Internal Medicine; Visit Provider Internal Medicine
DX: I65.23 Occlusion and stenosis of bilateral carotid arteries (principal)
CPT/HCPCS: 93880

== ENCOUNTER 2025-01-15 11:30 | Outpatient (RCR) | payer MEDICARE, SELFPAY ==
[2024-11-03 10:28] VITALS: BP 148/77; PULSE 60; RESP 18; TEMP 36.8; O2SAT 99
[2024-11-05 10:23] VITALS: BP 136/64; PULSE 60; RESP 18; TEMP 36.6; O2SAT 98
--- NOTE | 2024-11-05 13:48 | WPDSLSPROGRE ---
Progress HPI Progress HPI Visit Attended By patient and staff History Obtained From patient Patient Stated Chief Complaint Little bit of mood swings HPI patient is being seen for depression anxiety. He has had some mood swings and ups and Downs which sounds related to grief. His son December 2023 and his birthday is next month. Patient enjoys the program and participates well, and says that he sometimes struggles with putting aspects of his treatment plan into practice. Appetite and sleep are generally good. 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 Attends group 2 times a week. His is supportive. He has had no recent falls. Continues on Cymbalta 40 mg q.a.m., hydroxyzine 10 mg q.h.s., Ambien CR 12 mg q.h.s.. Usually only able to sleep with the combination of Ambien and hydroxyzine. Last week he did leave the group abruptly as he said that he felt that the nurse said something hurtful, although he believes that she was well meaning. Average Number of Hours of Sleep 7 Sleep Quality difficulty falling asleep Change in PMFSH Releveant to Presenting Illness Yes Describe Changes in PMFSH Increase in mood swings. Review of Systems Review of Systems Constitutional Reports fatigue and generalized weakness Eyes Reports WNL ENT Reports WNL Respiratory Reports WNL Cardiovascular Reports other ( Hypertension) Gastrointestinal Reports other ( diverticulosis) Musculoskeletal Reports abnormal gait, Reports assistive device, Reports diminished strength, Reports muscle stiffness and Reports other ( osteoarthritis, chronic pain) Neurologic Reports other ( myasthenia gravis) Skin Reports WNL ADL's Reports WNL and Reports independent Exam Physical Exam Review of Lab Studies n/a Hygiene good General Behavior/Attitude Toward Examiner pleasant and cooperative Pain Yes Pain Location generalized Pain Characteristics chronic and aching Psychiatric Exam Level of Consciousness alert Orientation person, place, time and situation Speech normal rate/tone/volume/prosody and coherent Language able to comprehend questions Mood ups and Downs Affect full range, appropriate and congruent Thought Processes/Form logical, linear and goal directed Thought Content depressive symptoms Delusions none Homicidal/Assaultive Ideation none Suicidal Ideation none Hallucinations none Attention/Concentration focused Attention/Concentration Testing Methods observation/interview Short Term Memory Impairment none STM Testing Methods clinical interview (assessment/observation) Penitentiary Memory Impairment none LTM Testing Methods recall of biographical information Intellectual Functioning roughly average Intellectual Functioning Assessed By fund of knowledge Insight fair Insight Assessed By ability to recognize & acknowledge mental illness, ability to understand the implications of mental illness, understanding of treatment options and ability to comply with treatment Judgement fair and improving Judgement Assessed By exploring recent decision-making MMSE n/a Patient Assets able to perform ADLs, willing to accept treatment Patient Liabilities grief, chronic pain, mobility issues Assessment and Plan Clinical Impression/Diag Clinical Impression/Diagnosis F 33.1. Some increase in frequency and intensity of grief, likely due to upcoming anniversaries. No change in medication recommended at this time. continue to help support patient as he struggles to implement goals of therapy. Progress Overview Reason for Continued Services in an Intensive Outpatient Program continued impaired mood and.or depression, patient would decompenste at a lower level of care, not at baseline level of functioning and high risk for relapse Treatment To Be Provided medication management and group/individual/rec therapy Discharge Disposition/Level of Care PCP Anticipated Discharge 4-6 weeks
[2024-11-11 10:22] VITALS: BP 148/83; PULSE 60; RESP 20; TEMP 36.6; O2SAT 99
[2024-11-12 10:00] VITALS: BP 148/80; PULSE 60; RESP 20; TEMP 36.3; O2SAT 99
[2024-11-18 10:30] VITALS: BP 120/60; PULSE 60; RESP 18; TEMP 37.1; O2SAT 98
[2024-11-19 09:39] VITALS: BP 136/80; PULSE 80; RESP 20; TEMP 36.8; O2SAT 94
[2024-11-25 10:06] VITALS: BP 136/77; PULSE 62; RESP 18; TEMP 36.9; O2SAT 97
[2024-11-26 10:06] VITALS: BP 125/80; PULSE 60; RESP 20; TEMP 36.8; O2SAT 98
--- NOTE | 2024-11-27 12:06 | WPDSLSPROGRE ---
Progress HPI Progress HPI Visit Attended By patient and staff History Obtained From patient Patient Stated Chief Complaint Downhill slide HPI this is a routine visit. Patient is being seen for depression and anxiety. Patient has been doing much worse over the past few weeks, partly because it is the the 1st year anniversary of his son's coming up in December, but he is also having extreme anxiety over the antics of his [id number]. It sounds like she has some type of personality disorder, as he describes her as evil and she will do anything she can to hurt you. This includes her retaining a cap blocker to try to get control of patient's son's estate, and not letting patient and his see their grand kids. In addition, patient thinks his may be developing dementia. He had been taking Xanax 0.25 mg p.r.n. in the past, and apparently he started taking this again about once a week but says it does not help and asks me if there is anything that I can give him for anxiety. He is also on Cymbalta 40 mg q.a.m., hydroxyzine 20 mg q.h.s., Ambien CR 12 mg q.h.s.. Average Number of Hours of Sleep 7 Sleep Quality difficulty falling asleep and frequent awakening Change in PMFSH Releveant to Presenting Illness Yes Describe Changes in PMFSH Increased family stress as above Review of Systems Review of Systems Constitutional Reports fatigue and generalized weakness Eyes Reports WNL ENT Reports WNL Respiratory Reports WNL Cardiovascular Reports other ( hypertension) Gastrointestinal Reports other ( diverticulosis) Musculoskeletal Reports abnormal gait, Reports assistive device, Reports diminished strength, Reports muscle stiffness and Reports other ( osteoarthritis, chronic pain) Neurologic Reports other ( myasthenia gravis) Skin Reports WNL ADL's Reports WNL and Reports independent Exam Physical Exam Review of Lab Studies n/a Hygiene good General Behavior/Attitude Toward Examiner pleasant, cooperative and irritable Pain Yes Pain Location generalized Pain Characteristics chronic Psychiatric Exam Level of Consciousness alert Orientation person, place, time and situation Speech normal rate/tone/volume/prosody and coherent Language able to comprehend questions Mood anxious Affect full range, appropriate and congruent Thought Processes/Form logical, linear and goal directed Thought Content depressive and anxiety symptoms Delusions none Homicidal/Assaultive Ideation none Suicidal Ideation none Hallucinations none Attention/Concentration focused Attention/Concentration Testing Methods observation/interview Short Term Memory Impairment none STM Testing Methods clinical interview (assessment/observation) [facility] Psych[facility] Memory Impairment none LTM Testing Methods recall of biographical information Intellectual Functioning roughly average Intellectual Functioning Assessed By fund of knowledge and current events Insight fair Insight Assessed By ability to recognize & acknowledge mental illness, ability to understand the implications of mental illness and understanding of treatment options Judgement fair Judgement Assessed By exploring recent decision-making MMSE n/a Patient Assets able to perform ADLs, willing to accept treatment Patient Liabilities grief, chronic pain, mobility issues, family issues Assessment and Plan Clinical Impression/Diag Clinical Impression/Diagnosis F 33.1. Increase in depressive and anxiety symptoms, family issues. Will increase Cymbalta to 60 mg q.day, patient may take an extra hydroxyzine 10 mg during the day as needed. Working on grief, coping skills, anxiety reduction Progress Overview Reason for Continued Services in an Intensive Outpatient Program continued impaired mood and.or depression, patient would decompenste at a lower level of care, not at baseline level of functioning and high risk for relapse Treatment To Be Provided medication management and group/individual/rec therapy Discharge Disposition/Level of Care PCP Anticipated Discharge 4-6 weeks
--- NOTE | 2024-11-27 13:56 | PC.NURSE ---
This nurse called Radha WALLACE and ordered the patient Duloxetine 60mg PO daily and Hydroxyzine 10mg PO as needed daily.
[2024-12-02 10:24] VITALS: BP 128/60; PULSE 60; RESP 20; TEMP 37.1; O2SAT 98
[2024-12-03 09:52] VITALS: BP 132/67; PULSE 60; RESP 20; TEMP 36.8; O2SAT 97
[2024-12-09 10:33] VITALS: BP 126/63; PULSE 60; RESP 18; TEMP 37.2; O2SAT 97
[2024-12-10 10:28] VITALS: BP 130/80; PULSE 82; RESP 20; TEMP 36.6; O2SAT 97
--- NOTE | 2024-12-10 13:33 | PC.NURSE ---
No nursing group due to nurse meeting.
[2024-12-16 10:28] VITALS: BP 133/69; PULSE 72; RESP 20; TEMP 36.9; O2SAT 94
--- NOTE | 2024-12-18 09:42 | PC.NURSE ---
No nursing group due to MD visit.
[2024-12-18 10:27] VITALS: BP 138/76; PULSE 84; RESP 20; TEMP 37.1; O2SAT 98
--- NOTE | 2024-12-18 11:55 | WPDSLSPROGRE ---
Progress HPI Progress HPI Visit Attended By patient and staff History Obtained From patient Patient Stated Chief Complaint pretty good HPI this is a routine follow-up for depression and anxiety. At our last visit we increased patient Cymbalta to 60 mg q.a.m., and both patient and staff have noticed a difference. Patient says that his appetite is a lot better, as well as his mood, and staff feel that he is doing better as well. Also on hydroxyzine 10 mg q.day p.r.n. and 20 mg q.h.s., Ambien CR 12 mg q.h.s., and is also on Xanax 0.25 mg q.day p.r.n., which he has not recently had to take. Still dealing with [id number], who is trying to get control of patient's son's estate, and not letting patient see their grandkids. Attending 2 times a week, and today working on triggers. Patient gives an example of this as he sold his son's truck recently, still sees at around town with Susy and son on it. had been having some dizziness recently, diagnosed with atrial fibrillation, now on a blood thinner, and says that he has not been feeling as dizzy. Patient made it through the anniversary of son's birthday on the , but the anniversary of his is coming up on 01/06 and patient feels that he will probably have some difficulty with this. patient also has concern about his , whom he fears developing dementia, as she is becoming somewhat more controlling in spite of the fact that she is making some poor decisions regarding finances. Average Number of Hours of Sleep 7 Sleep Quality difficulty falling asleep and frequent awakening Change in PMFSH Releveant to Presenting Illness Yes Describe Changes in PMFSH Improvement in depressive symptoms Review of Systems Review of Systems Constitutional Reports fatigue and generalized weakness Eyes Reports WNL ENT Reports WNL Respiratory Reports WNL Cardiovascular Reports other ( hypertension, atrial fibrillation) Gastrointestinal Reports other ( diverticulosis) Musculoskeletal Reports abnormal gait, Reports assistive device, Reports diminished strength, Reports muscle stiffness and Reports other ( osteoarthritis, chronic pain) Neurologic Reports other ( myasthenia gravis) Skin Reports WNL ADL's Reports WNL and Reports independent Exam Physical Exam Review of Lab Studies n/a Hygiene good General Behavior/Attitude Toward Examiner pleasant and cooperative Pain Yes Pain Location generalized Pain Characteristics chronic Psychiatric Exam Level of Consciousness alert Orientation person, place, time and situation Speech normal rate/tone/volume/prosody and coherent Language able to follow instructions or commands Mood pretty good Affect full range, appropriate and congruent Thought Processes/Form logical, linear and goal directed Thought Content diminished depressive and anxiety symptoms Delusions none Homicidal/Assaultive Ideation none Suicidal Ideation none Hallucinations none Attention/Concentration focused Attention/Concentration Testing Methods observation/interview Short Term Memory Impairment none STM Testing Methods clinical interview (assessment/observation) [place] Machine [employer] Memory Impairment none LTM Testing Methods recall of biographical information Intellectual Functioning roughly average Intellectual Functioning Assessed By fund of knowledge Insight fair and improving Insight Assessed By ability to recognize & acknowledge mental illness, ability to understand the implications of mental illness, understanding of treatment options and ability to comply with treatment Judgement fair and improving Judgement Assessed By exploring recent decision-making MMSE n/a Patient Assets able to perform ADLs, willing to accept treatment Patient Liabilities grief, chronic pain, mobility issues, family issues Assessment and Plan Clinical Impression/Diag Clinical Impression/Diagnosis F 33.1, some improvement. Continue meds, working on grief, coping skills, anxiety reduction Progress Overview Reason for Continued Services in an Intensive Outpatient Program continued impaired mood and.or depression, patient would decompenste at a lower level of care, not at baseline level of functioning and high risk for relapse Treatment To Be Provided medication management and group/individual/rec therapy Discharge Disposition/Level of Care PCP Anticipated Discharge 4-6 weeks
[2024-12-23 10:15] VITALS: BP 114/78; PULSE 60; RESP 18; TEMP 37.1; O2SAT 98
[2024-12-24 10:16] VITALS: BP 129/61; PULSE 60; RESP 18; TEMP 36.8; O2SAT 95
[2024-12-29 10:26] VITALS: BP 140/70; PULSE 62; RESP 20; TEMP 36.8; O2SAT 99
[2024-12-31 10:06] VITALS: BP 117/60; PULSE 66; RESP 20; TEMP 36.8; O2SAT 98
[2025-01-05 10:08] VITALS: BP 125/77; PULSE 60; RESP 20; TEMP 36.7; O2SAT 98
[2025-01-07 10:03] VITALS: BP 126/73; PULSE 58; RESP 20; TEMP 36.7; O2SAT 98
[2025-01-12 10:00] VITALS: BP 130/67; PULSE 87; RESP 18; TEMP 37.1; O2SAT 98
--- NOTE | 2025-01-14 08:29 | SLSTHERAPY ---
Phone call received from Piyush canceling 01/14/2025 group attendance due to illness; Piyush was reminded of upcoming scheduled appointments: Dr. Rea 01/15/2025 & group 01/19/2025.
--- NOTE | 2025-01-15 11:58 | WPDSLSPROGRE ---
Progress HPI Progress HPI Visit Attended By patient and staff History Obtained From patient Patient Stated Chief Complaint lucia almonte HPI Had the worst anxiety I ever had, Couldn't sleep, anxious. He also experienced the anniversary of his son's recently and this may have triggered it, although he said that he spent time with his family around this time and he says it went surprisingly well. He also is under tremendous stress, just put his son's house on the market, ongoing issues with [id number] who is trying to get control of patient's sons state and not being able to see his grand kids, as also concerned about his whom he fears is developing dementia. However, after he left staff informed me that in group recently he said a racial slur and was basically admonished by staff that he could not do this in group. This may explain why today he said that sometimes he feels worse in group as this is not the 1st time this has happened. Continues on hydroxyzine 10 mg q.day p.r.n. 20 mg q.h.s., Cymbalta 60 mg q.a.m., Ambien CR 12.5 mg q.h.s.. Does not really take Xanax. He is somewhat distressed over weight gain I told him this is likely due to lack of exercise and side effects from medicine. I also told him that court is all is released under stress and is notorious for causing weight gain. He does engage in some low-impact exercise in a class around by the hospital PT department. Attends 2 times a week. 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 And he could not do this at the beginning of the program. Average Number of Hours of Sleep 8 Sleep Quality difficulty falling asleep and frequent awakening Change in PMFSH Releveant to Presenting Illness Yes Describe Changes in PMFSH Ongoing psychosocial stressors Review of Systems Review of Systems Constitutional Reports fatigue and generalized weakness Eyes Reports WNL ENT Reports WNL Respiratory Reports WNL Cardiovascular Reports other ( hypertension, atrial fibrillation) Gastrointestinal Reports other ( diverticulosis) Musculoskeletal Reports abnormal gait, Reports assistive device, Reports diminished strength, Reports muscle stiffness and Reports other ( osteoarthritis, chronic pain) Neurologic Reports other ( myasthenia gravis) Skin Reports WNL ADL's Reports WNL and Reports independent Exam Physical Exam Review of Lab Studies n/a Hygiene good General Behavior/Attitude Toward Examiner pleasant and cooperative Pain Yes Pain Location generalized Pain Characteristics chronic Psychiatric Exam Level of Consciousness alert Orientation person, place, time and situation Speech normal rate/tone/volume/prosody and coherent Language able to comprehend questions Mood roller coaster Affect full range, appropriate and congruent Thought Processes/Form logical, linear and goal directed Thought Content depressive and anxiety symptoms Delusions none Homicidal/Assaultive Ideation none Suicidal Ideation none Hallucinations none Attention/Concentration focused Attention/Concentration Testing Methods observation/interview Short Term Memory Impairment none STM Testing Methods clinical interview (assessment/observation) Care Home Memory Impairment none LTM Testing Methods recall of biographical information Intellectual Functioning roughly average Intellectual Functioning Assessed By fund of knowledge Insight fair and improving Insight Assessed By ability to recognize & acknowledge mental illness, ability to understand the implications of mental illness, understanding of treatment options and ability to comply with treatment Judgement fair and improving Judgement Assessed By exploring recent decision-making MMSE n/a Patient Assets able to perform ADLs, willing to accept treatment Patient Liabilities grief, chronic pain, mobility issues, family issues Assessment and Plan Clinical Impression/Diag Clinical Impression/Diagnosis F 33.1, continuing to work on anxiety reduction, psychosocial issues, monitor meds Progress Overview Reason for Continued Services in an Outpatient Program continued impaired mood and.or depression, patient would decompenste at a lower level of care, not at baseline level of functioning and high risk for relapse Treatment To Be Provided medication management and group/individual/rec therapy Discharge Disposition/Level of Care PCP Anticipated Discharge 4-6 weeks
--- NOTE | 2025-01-19 08:41 | PC.NURSE ---
The patient called and cancelled his group sessions for this week.
--- NOTE | 2025-01-22 08:07 | SLSTHERAPY ---
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
--- NOTE | 2025-01-22 14:47 | SLSTHERAPY ---
Piyush canceled attendance for 01/21/2025 group sessions.
== END 2025-02-01 23:59 | disposition home or self-care (01) ==
LOC: CHSSENLIFE 11:30
PROVIDERS: PCP Internal Medicine; Visit Provider Psychiatry & Neurology Psychiatry
DX: F33.1 Major depressive disorder, recurrent, moderate (principal)
CPT/HCPCS: 90853; 93880; 99213; 99214; G0463

== ENCOUNTER 2025-02-05 08:51 | Outpatient (RCR) | payer MEDICARE, SELFPAY ==
[2025-02-02 00:01] VITALS: BP 130/67; PULSE 87; RESP 18; TEMP 37.1; O2SAT 98
--- NOTE | 2025-02-05 12:52 | P.DS_ITS ---
Discharge Summary Mental Status See response to treatment/treatment course summary Reason for Admission this is a 78-year-old white male with a long history of depression and anxiety, previously admitted here on 05/23/2018, readmitted to program on 05/01/2024. He has had an increase in depressive and anxiety symptoms since December of last year when his son, who had drug and alcohol issues, unexpectedly. Patient says that his son this marriage was a significant stressor for the son and he from a meth overdose, apparently accidentally. Patient is consumed with grief over the fact that he feels he did not impress upon his son sufficiently that the relationship with his was toxic. Patient reported depressed and anxious mood, loss of interest in activities, low energy, feelings of guilt, worthlessness, difficulty concentrating, restlessness, irritability, dias insomnia. Patient has had trouble with sleep for years and although he came in on Ambien this was no longer helping. His doctor gave him low-dose Xanax and Cymbalta but the Cymbalta caused GI side effects and a low-dose of Xanax was ineffective. He was on Remeron in the past which helped him sleep but he went to 3.75 mg dose he was excessively sedated. He is unsure as to what other antidepressants he has been on. Treatment Plan Utilization/Treatment Patient was admitted and medications continued. There was some confusion as to whether he was still on Cymbalta or not, as he is somewhat of a poor historian. On admission he was started on trazodone for sleep but this was discontinued on 05/08/2024 due to side effects. We continued Ambien CR 12.5 mg q.h.s.. Sleep continued to be a major concern for him, and this was probably due to severe chronic depression and anxiety as well as his myasthenia gravis. On 05/15/2024 we started him on hydroxyzine 10 mg 1-2 tabs q.h.s. p.r.n. and when he took this with the Ambien this actually helped him get a few hours sleep at night. On 06/12/2024 we simply had to assume that he was continuing Cymbalta 20 mg q.a.m. based on what information we had, and we increase this to 40 mg q.a.m., which did seem to help with his depressive symptoms. On 11/27/2024 his Cymbalta was increased to 60 mg q.day and hydroxyzine was changed to 10 mg p.o. p.r.n. q.day. supportive/ cognitive therapy utilized, and he worked on topics such as coping skills, grief, among other topics. Response to [place]/Treatment Course Summary Patient did improve while in the program, although he still continued to struggle with grief and multiple other significant stressors, including his medical conditions. However, at 1 point in therapy he used the N word, with staff having to redirect him and tell him that that was not appropriate. It sounds like that he felt he was being scolded, and after that point he began missing a lot of groups. Today when he sees me he says that he is not comfortable in therapy anymore wish to be discharged. MSE on discharge- appropriately dressed and groomed. Pleasant cooperative. Mood/ affect depressed, irritable, motor activity impaired secondary to physical limitations, speech is normal amount, rate, variability of tone. Thought content- depressive symptoms, denies suicidal or homicidal ideations, psychosis, nancy. Thought process logical goal directed. Insight judgment fair. Immediate and recent memory grossly intact. Estimated intellectual functioning average. Alert fully oriented. Aftercare Plan Outpatient follow-up with PCP. We did refer [facility] to [facility] he declined this. Discharge Diagnosis F 33.1
== END 2025-02-05 14:04 | disposition home or self-care (01) ==
LOC: CHSSENLIFE 08:51
PROVIDERS: PCP Internal Medicine; Visit Provider Psychiatry & Neurology Psychiatry
DX: F33.1 Major depressive disorder, recurrent, moderate (principal)
CPT/HCPCS: 99213; G0463